=== PATIENT | male | born 1970 | race Caucasian/White ===

== ENCOUNTER 2017-01-10 02:34 | Observation (INO) | payer BC ==
[2017-01-10] MEDS ORDERED: ASPIRIN 81 MG CHEW PO STA (03:20)
[2017-01-10] MEDS ORDERED: NITROGLYCERIN OINT 1 INCH/GM PACKET TOPICAL STA (03:20)
[2017-01-10] MEDS ORDERED: MORPHINE SULFATE 4 MG/ML SYRINGE IV STA (03:20)
[2017-01-10] MEDS ORDERED: SODIUM CHLORIDE 0.9% 1,000 ML IV STA (03:20)
[2017-01-10] MEDS ORDERED: ONDANSETRON 4 MG/2 ML VIAL IVP STA (03:20)
[2017-01-10 03:53] LABS: ALT 74 U/L (21-72); AST 43 U/L (17-59); Alkaline Phosphatase 53 U/L (38-126); Anion Gap 13 mmol/L; Blood Urea Nitrogen 22 mg/dL (9-20); Calcium 9.6 mg/dL (8.4-10.2); Carbon Dioxide 23 mmol/L (22-30); Chloride 101 mmol/L (98-107); Glucose 114 mg/dL (74-99); Magnesium 1.9 mg/dL (1.6-2.3); Non-African American GFR(MDRD) >60 (>60 ml/min/1.73 sqM); Potassium 4.1 mmol/L (3.5-5.1); Sodium 137 mmol/L (137-145); Total Bilirubin 1.1 mg/dL (0.2-1.3); Total Protein 7.3 g/dL (6.3-8.2)
[2017-01-10 03:54] LABS: Basophils # (A) 0.1 k/uL (0-0.2); Basophils % (A) 1 %; CH 31.6; CHCM 36.6; Eosinophils # (A) 0.2 k/uL (0-0.7); Eosinophils % (A) 3 %; HCT 49.5 % (39.0-53.0); HDW 2.94; HGB 17.4 gm/dL (13.0-17.5); Luc # (Auto) 0.21; Luc % (Auto) 3; Lymphocytes # (A) 1.8 k/uL (1.0-4.8); Lymphocytes % (A) 21 %; MCH 30.3 pg (25.0-35.0); MCHC 35.1 g/dL (31.0-37.0); MCV 86.5 fL (80.0-100.0); Mean Platelet Volume 7.8; Monocytes # (A) 0.5 k/uL (0-1.0); Monocytes % (A) 6 %; Neutrophils # (A) 5.7 k/uL (1.3-7.7); Neutrophils % (A) 67 %; RBC 5.73 m/uL (4.30-5.90); RDW 12.9 % (11.5-15.5); WBC 8.4 k/uL (3.8-10.6); WBC (Perox) 8.48
--- NOTE | 2017-01-10 04:03 | XR ---
EXAM: XR Chest, 2 Views. CLINICAL HISTORY: Reason: Chest Pain TECHNIQUE: Frontal and lateral views of the chest. COMPARISON: CXR 04/05/15 FINDINGS: Lungs: Unremarkable. No consolidation. Pleural space: Unremarkable. No pneumothorax. Heart: Unremarkable. No cardiomegaly. Mediastinum: Unremarkable. Bones/joints: Multilevel degenerative changes of the thoracic spine. IMPRESSION: No acute findings.
[2017-01-10 04:06] LABS: Creatine Kinase 139 U/L (55-170)
[2017-01-10 04:07] LABS: INR 1.1 (<1.1); Partial Thromboplastin Time 28.8 sec (22.0-30.0); Prothrombin Time 10.9 sec (9.0-12.0)
[2017-01-10 04:19] LABS: Creatine Kinase MB 1.2 ng/mL (0.0-2.4); Troponin I <0.012 ng/mL (0.000-0.034)
[2017-01-10] MEDS ORDERED: HEPARIN SODIUM,PORCINE 5,000 UNIT/ML 1 ML VIAL IV ONE (06:03)
[2017-01-10] MEDS ORDERED: NITROGLYCERIN SL TABS 0.4 MG TAB SUBLINGUAL PRN (06:03)
[2017-01-10] MEDS ORDERED: MORPHINE SULFATE 4 MG/ML SYRINGE IV PRN (06:03)
--- NOTE | 2017-01-10 06:03 | ED ---
Chest Pain HPI - General Chief Complaint: Chest Pain Stated Complaint: Chest tightness Time Seen by Provider: 01/10/17 02:55 Source: patient Mode of arrival: wheelchair Limitations: no limitations - History of Present Illness Initial Comments: Planing about chest pain it started around 10:30 and they noticed his blood pressure was quite high on arrival his blood pressure was 200 systolic is not feeling well he does have a history of hypertension I examine her average blood pressure is 140/85 he has seen lime trimmer and had a stress test done about one year ago today he denies any nausea no vomiting no cold sweats and he is short of breath no pleuritic chest pain he denies any tobacco or alcohol use his family history is unremarkable for coronary artery disease - Related Data Home Medications Medication Instructions Recorded Confirmed Omeprazole [PriLOSEC] 20 mg PO AC-BID 04/05/15 01/10/17 Hydrochlorothiazide 25 mg PO DAILY 01/10/17 01/10/17 Losartan Potassium [Cozaar] 50 mg PO DAILY 01/10/17 01/10/17 Allergies Allergy/AdvReac Type Severity Reaction Status Date / Time No Known Allergies Allergy Verified 01/10/17 02:42 Review of Systems ROS Statement: Those systems with pertinent positive or pertinent negative responses have been documented in the HPI. ROS Other: All systems not noted in ROS Statement are negative. EKG Findings - EKG Comments: EKG Findings:: EKG is normal sinus rhythm ventricular rate is 92 TN interval is 152 QRS duration is 82 QT/QTc is 314/390 review of this EKG showed flattening of the T-wave in lead [address] elevation or ST depression noticed in the other leads Past Medical History Past Medical History: GERD/Reflux, Hypertension History of Any Multi-Drug Resistant Organisms: None Reported Past Surgical History: Orthopedic Surgery Past Psychological History: No Psychological Hx Reported Smoking Status: Never smoker Past Alcohol Use History: Occasional Past Drug Use History: None Reported General Exam - General Exam Comments Initial Comments: General: The patient is awake and alert, really distressed Skin: Skin is warm and dry and no rashes or lesions are noted. Eye: Pupils are equal, round and reactive to light, extra-ocular movements are intact; there is normal conjunctiva bilaterally. Ears, nose, mouth and throat: There are moist mucous membranes and no oral lesions. Neck: The neck is supple, there is no tenderness or JVD. Cardiovascular: There is a regular rate and rhythm. No murmur, rub or gallop is appreciated. Respiratory: To auscultation bilateral, no wheezing no rhonchi no distress respiratory farris noticed Gastrointestinal: Soft, non-distended, non-tender abdomen without masses or organomegaly noted. There is no rebound or guarding present. Bowel sounds are unremarkable. Back: There is no tenderness to palpation in the midline. There is no obvious deformity. Musculoskeletal: Normal ROM, no tenderness, There is no pedal edema. There is no calf tenderness or swelling. No cords were appreciated. Neurological: CN II-XII intact, Cranial nerves III through XII are intact. There are no obvious motor or sensory deficits. Coordination appears grossly intact. Speech is normal. Psychiatric: Cooperative, appropriate mood & affect, normal judgment. Limitations: no limitations Course Vital Signs 01/10/17 01/10/17 01/10/17 02:38 02:56 03:26 Temperature 99.4 F Pulse Rate 100 86 85 Respiratory 18 18 18 Rate Blood Pressure 200/96 167/96 147/93 O2 Sat by Pulse 97 96 97 Oximetry Critical Care Time Total Critical Care Time: 37 Critical Care Time: General is quite distressed when he came in at that point a lot of her chest pressure patient be given some nitro with the morphine and Zofran of that he helped him with his pain and denies blood pressure eventually improved blood pressure the time it's with the assessment was 145 systolic his chest pain has gone down now is not totally does wall considering his elevated blood pressure and chest pressure though first troponin is -100-10 E. 3 sets of troponin he'll be heparinized and will consult cardiology he be admitted under Dr. Paredes service Disposition Clinical Impression: Hypertension, Chest pain Disposition: ADMITTED IP TO THIS HOSP Condition: Good Instructions: Chest Pain (ED)
[2017-01-10] MEDS ORDERED: HEPARIN SODIUM,PORCINE/D5W PMX 25,000 UNIT in DEXTROSE/WATER 1 500ML.BAG IV SCH (06:15)
[2017-01-10 09:50] LABS: Creatine Kinase 117 U/L (55-170)
[2017-01-10 10:01] LABS: Creatine Kinase MB 1.1 ng/mL (0.0-2.4); Troponin I <0.012 ng/mL (0.000-0.034)
--- NOTE | 2017-01-10 10:07 | CONS ---
DATE OF CONSULTATION: Mr. Jay is a 46-year-old male with known history of hypertension, no prior documented history of coronary artery disease, who presented with symptoms of tightness in the chest. The discomfort started around 10:30 last night while at rest, persisted until now, which is about 12 hours. He checked his blood pressure and it was elevated, was concerned about it, came into the emergency room and subsequently admitted. He is usually active physically. He has no exertional chest pain. His breathing has been stable. He has no dizziness, palpitation or syncope. He had a prior peripheral edema ( ) antihypertensive regimen but that has resolved. No PND. No orthopnea. He has been followed by Dr. Baldwin as an outpatient and had similar symptoms about a year ago and at that time underwent a stress test and an echo and according to him they were unremarkable. His coronary risk factors are positive for hypertension. He is nondiabetic, nonsmoker. His lipid profile is not available to me. His medications include losartan 50 mg daily, hydrochlorothiazide 25 mg daily, omeprazole 20 mg daily. REVIEW OF SYSTEMS: RESPIRATORY SYSTEM: He has no recent wheezing. No cough. No history of documented obstructive lung disease. GI SYSTEM: No recent GI bleeding. No peptic ulcer disease. SYSTEM: No dysuria or hematuria. NERVOUS SYSTEM: No stroke or seizure. PHYSICAL EXAMINATION: A 46-year-old male, alert, oriented, in no apparent distress. Blood pressure 142/80 with the heart rate in the 90s. HEAD: Normocephalic. EYES: Sclerae anicteric. NECK: Good upstroke. No bruit. No jugular venous distention. LUNGS: Clear to auscultation. HEART: Regular rate and rhythm. S1, S2, no S3, no S4, no murmur or rub. ABDOMEN: Soft, nontender, positive bowel sounds. No organomegaly. EXTREMITIES: No edema. Intact distal pulses. Lab data revealed troponin less than 0.012. ALT of 74. BUN and creatinine 22 and 1.0, Potassium 4.1. Hemoglobin of 17.4. White blood cell of 8.4. EKG revealed sinus mechanism, normal axis and intervals, normal electrocardiogram. Chest x-ray shows no acute changes. IMPRESSION: 1. Symptoms of chest discomfort, have atypical feature for ischemic heart disease in a patient with no prior documented history of coronary artery disease. The pattern of the symptoms as well as duration negative with the negative enzymes makes it less likely to be cardiac. 2. Hypertension. RECOMMENDATION: I will obtain the prior workup that was done by Dr. Baldwin, will obtain serial enzymes. I will obtain echocardiogram. Depending on the results of his testing and his symptoms, further recommendation will be made. Thank you for this consult. We will follow with you.
[2017-01-10] MEDS: LOSARTAN 50 MG TAB PO SCH (10:23)
[2017-01-10] MEDS: HYDROCHLOROTHIAZIDE 25 MG TAB PO SCH (10:24)
[2017-01-10] MEDS: PANTOPRAZOLE 40 MG TABLET PO SCH ×2 (10:24→18:58)
[2017-01-10] MEDS: ACETAMINOPHEN TAB 325 MG TAB PO PRN (11:23)
--- NOTE | 2017-01-10 12:09 | ECHOF ---
Referral Reason:htn MEASUREMENTS -------- HEIGHT: 177.8 cm WEIGHT: 106.6 kg BP: 162/92 RVIDd: 2.7 cm (< 3.3) IVSd: 1.2 cm (0.6 - 1.1) LVIDd: 5.0 cm (3.9 - 5.3) LVPWd: 1.3 cm (0.6 - 1.1) IVSs: 1.8 cm LVIDs: 3.2 cm LVPWs: 1.5 cm LA Diam: 3.7 cm (2.7 - 3.8) LAESV Index (A-L): 22.60 ml/m Ao Diam: 2.7 cm (2.0 - 3.7) AV Cusp: 2.1 cm (1.5 - 2.6) LA Diam: 3.3 cm (2.7 - 3.8) MV EXCURSION: 14.230 mm (> 18.000) MV EF SLOPE: 57 mm/s (70 - 150) EPSS: 0.4 cm MV E Reid: 0.87 m/s MV DecT: 183 ms MV A Reid: 0.82 m/s MV E/A Ratio: 1.06 AR PHT: 1258 ms RAP: 5.00 mmHg FINDINGS -------- Sinus rhythm. This was a technically good study. There is mild concentric left ventricular hypertrophy. Overall left ventricular systolic function is normal with, an EF between 55 - 60 %. The right ventricle is normal in size. Normal LA size by volume 22+/-6 ml/m2. The right atrium is normal in size. Aortic valve is trileaflet and is mildly thickened. Trace amount of aortic regurgitation. Mild mitral annular calcification present. There is trace mitral regurgitation. Trace tricuspid regurgitation present. Right ventricular systolic pressure is normal at < 35 mmHg. Pulmonic valve appears structurally normal. The aortic root size is normal. Normal inferior vena cava with normal inspiratory collapse consistent with estimated right atrial pressure of 5 mmHg. There is no pericardial effusion. CONCLUSIONS -------- 1. Sinus rhythm. 2. Mild mitral annular calcification present. 3. There is trace mitral regurgitation. 4. Trace tricuspid regurgitation present. 5. Right ventricular systolic pressure is normal at < 35 mmHg. 6. Pulmonic valve appears structurally normal. 7. The aortic root size is normal. 8. There is no pericardial effusion. 9. This was a technically good study. 10. There is mild concentric left ventricular hypertrophy. 11. Overall left ventricular systolic function is normal with, an EF between 55 - 60 %. 12. The right ventricle is normal in size. 13. Normal LA size by volume 22+/-6 ml/m2. 14. The right atrium is normal in size. 15. Aortic valve is trileaflet and is mildly thickened. 16. Trace amount of aortic regurgitation. WAX POURER: Rimma Alvarenga RDCS
[2017-01-10 15:55] LABS: Creatine Kinase 100 U/L (55-170)
[2017-01-10 16:08] LABS: Creatine Kinase MB 0.8 ng/mL (0.0-2.4); Troponin I <0.012 ng/mL (0.000-0.034)
--- NOTE | 2017-01-10 17:46 | HP ---
DATE OF ADMISSION: 01/10/2017 PRESENTING COMPLAINT: Chest pressure. HISTORY OF PRESENTING COMPLAINT: This is a pleasant 46-year-old patient of Dr. Lebron with known history of GERD, hypertension which is stable, history of stress test about a year ago that was negative. Patient said that yesterday he developed chest tightness, present on and off for quite a few hours. Patient did take his blood pressure at that time and it was 188/108. There was no dizziness, no radiation, no perspiration. Patient may be a bit anxious, he stated. Patient has a desk job at work; came in to rule out a cardiac cause. REVIEW OF SYSTEMS: CONSTITUTIONAL: Tired. HEENT: None. RESPIRATORY: None. CARDIOVASCULAR: As above. GASTROINTESTINAL: Heartburn. GENITOURINARY: None. MUSCULOSKELETAL: None. DERMATOLOGIC: None. HEMATOLOGIC: None. LYMPHATICS: None. PSYCHIATRY: Somewhat anxious. NEUROLOGICAL: None. PAST MEDICAL HISTORY: GERD, hypertension. PAST SURGICAL HISTORY: Right knee hematoma surgically removed, from football injury. SOCIAL HISTORY: . 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 Alcohol occasionally. He does not smoke. FAMILY HISTORY: Hypertension, diabetes. HOME MEDICATIONS: 1. Prilosec 20 mg a day. 2. Cozaar 50 mg a day. 3. Hydrochlorothiazide 25 mg a day. ALLERGIES: NONE. On examination, temperature 97.5, pulse 90, respiration 18, blood pressure 162/92, pulse ox 93% on room air. GENERAL APPEARANCE: Well built; BMI of 33.8. Lying in bed. Anxious-appearing. EYES: Pupils equal. Conjunctivae normal. HEENT: Oral cavity normal. NECK: JVD not raised. Mass not palpable. RESPIRATORY: Effort normal. Lungs are clear. CARDIOVASCULAR: First and second sounds normal. No edema. ABDOMEN: Soft, non-tender. Liver and spleen not palpable. LYMPHATIC: No lymph node palpable in neck or axillae. PSYCHIATRY: Alert and oriented x3. Mood and affect normal. INVESTIGATIONS: White count 8.4, hemoglobin 17.4. Potassium 4.1. BUN 22, creatinine 1.0. Troponin less than 0.012. EKG shows normal sinus rhythm. Two-D echocardiogram shows some mild concentric left ventricular hypertrophy. ASSESSMENT: 1. Anterior chest wall pressure in a patient with known hypertension, gastroesophageal reflux disease, blood pressure running on the high side, somewhat high-strung, with a negative stress test one year ago. 2. Essential hypertension, uncontrolled. 3. Gastroesophageal reflux disease. 4. Obesity; body mass index of 33.8. PLAN: Cardiology was consulted. They will look into patient's old stress test. Patient's blood pressure medications will be adjusted. Will switch to lisinopril/hydrochlorothiazide in the meantime. Will await cardiology input and go from there. Patient also advised to lose weight.
[2017-01-10 19:38] VITALS: RESP 16
--- NOTE | 2017-01-11 07:50 | PN ---
Mr. Jay is a 46-year-old male with known history of hypertension who presented with symptoms of chest discomfort. He is doing well this morning, ambulating without difficulty. Denying any dizziness. No palpitation. No nausea. He continues to be on aspirin once a day, losartan 50 mg daily and hydrochlorothiazide 25 mg daily. PHYSICAL EXAMINATION: Blood pressure 140/70 with the heart rate in the 70s. LUNGS: Clear. HEART: Regular rate and rhythm. S1 and S2, no S3, no rub. ABDOMEN: Soft, nontender. EXTREMITIES: No edema. Lab data revealed troponin less than 0.012 for 3 samples. IMPRESSION: 1. Chest discomfort of unclear etiology has some atypical feature for ischemic heart disease. 2. Hypertension. RECOMMENDATION: I reviewed the results of his echocardiogram. In the past, he had a regular stress test that was unremarkable. In view of that, he will proceed with a stress echocardiogram today. If there is no evidence of inducible ischemia, then he should be able to be discharged home and follow as an outpatient with Dr. Baldwin.
[2017-01-11 08:59] LABS: Cholesterol 143 mg/dL (<200); HDL Cholesterol 37 mg/dL (40-60); Triglycerides 130 mg/dL (<150)
[2017-01-11] MEDS ORDERED: ASPIRIN 325 MG TAB PO SCH (09:00)
[2017-01-11] MEDS: HYDROCHLOROTHIAZIDE 25 MG TAB PO SCH (11:30)
[2017-01-11] MEDS: LOSARTAN 50 MG TAB PO SCH (11:30)
[2017-01-11] MEDS: PANTOPRAZOLE 40 MG TABLET PO SCH (11:30)
[2017-01-11] MEDS: ACETAMINOPHEN TAB 325 MG TAB PO PRN (11:35)
--- NOTE | 2017-01-11 14:40 | ECHOS ---
DATE OF SERVICE: 01/11/2017 AGE: 46Y SEX: M HT: 70" WT: 235 lbs. Protocol Paulo: X Others: Stress Echo Stage: 3 Dur. of Exercise: 9:00 *Heart Rate Blood Pressure *Rest: 83 Rest: 144/92 * *Max. Achieved: 156 Maximum BP: 190/81 85% PMHR: 147 100% PMHR: 173 *METS: 9.1 INDICATIONS: Chest pain. MEDICATIONS: Omeprazole, Cozaar, hydrochlorothiazide. Patient was exercised for a total period of 9 minutes. A peak heart rate of 156 was achieved. Maximum blood pressure of 190/81 mmHg was noted. Resting EKG shows normal sinus rhythm with normal DE interval and QRS duration and normal ST-T waves. No ST segment depression suggestive of ischemia is noted. The baseline echocardiographic images reveal a normal left ventricular chamber size with normal left ventricular systolic function. In the immediate postexercise period, normal increase in the wall thickness and contractility is noted. IMPRESSION: This stress echocardiographic study is negative for stress-induced ischemia. EKG portion of the stress test is not suggestive of ischemia. Patient's exercise tolerance is normal.
[2017-01-11 15:49] VITALS: BP 140/79; PULSE 82; TEMP 98.7
--- NOTE | 2017-01-12 09:09 | DS ---
DATE OF ADMISSION: 01/10/2017 DATE OF DISCHARGE: 01/11/2017 FINAL DIAGNOSES: 1. Anterior chest wall pain, probably psychosomatic. 2. Anxiety disorder, not otherwise specified. 3. Essential hypertension, uncontrolled. 4. Gastroesophageal reflux disease. 5. Obesity, body mass index 33.8. HOSPITAL COURSE: This patient is somewhat high strung presented with atypical presentation, did undergo a stress echocardiogram that was negative. Did talk to patient about how to do mindfulness, etc. to try to keep himself calm. ( ) changed. On exam, lungs are clear. CARDIOVASCULAR: First and second sounds normal. Patient's LDL was 80. DISCHARGE MEDICATIONS: 1. Omeprazole 20 mg daily. 2. Cozaar 50 mg daily. 3. Chlorthalidone 25 mg p.o. daily. Patient also advised ( ) weight loss measures. Follow up with Dr. Lebron in one week. Follow up with Dr. Teodora Baldwin in one week.
== END 2017-01-11 15:45 | disposition home or self-care (01) ==
LOC: EC 02:34 → 3OBS 06:03
PROVIDERS: ADMIT Hospitalist; ATTEND Hospitalist
DX: R07.89 Other chest pain (principal); F41.9 Anxiety disorder, unspecified; I10 Essential (primary) hypertension; K21.9 Gastro-esophageal reflux disease without esophagitis; E66.9 Obesity, unspecified; Z68.33 Body mass index [BMI] 33.0-33.9, adult; Z82.49 Family history of ischemic heart disease and other diseases of the circulatory system; Z79.899 Other long term (current) drug therapy
CPT/HCPCS: 36415; 93005; 93017; 93306; 93350; 85379; 80061; 80053; 82550; 82553; 83735; 84484; 85025; 85610; 85730; 71020; 99285; 96375 ×2; 96376; 96361; G0378 ×2; J2270; J1644 ×2; J2405; 96366

== ENCOUNTER 2019-02-11 08:09 | Day surgery (SDC) | payer BC ==
[2019-02-06 11:19] VITALS: BMI 33.7
[~2019-02-11 08:09] MED LIST: DEXAMETHASONE SOD PHOSPHATE 10 MG/ML 1 ML VIAL IV ONE; HEPARIN SODIUM,PORCINE 5,000 UNIT/ML 1 ML VIAL SQ ONE; HYDROmorphone 0.5 MG/0.5 ML SYRINGE IVP PRN; LACTATED RINGERS 1,000 ML IV SCH; MIDAZOLAM (PF) 2 MG/2 ML VIAL IV PRN; ONDANSETRON 4 MG/2 ML VIAL IVP ONE; SCOPOLAMINE 1.5MG/72HR PATCH TRANSDERM ONE; ceFAZolin IN SWFI 2 GM/20 ML SYRINGE IVP ONE
[2019-02-11] MEDS ORDERED: LIDOCAINE 1% 20 ML VIAL (10MG/ML) FOR IV START SQ ONE (08:33)
--- NOTE | 2019-02-11 08:53 | P.GSHP ---
History of Present Illness H&P Date: 02/11/19 Chief Complaint: Right upper quadrant pain, cholelithiasis This a 48-year-old male who presents today for laparoscopic cholecystectomy. Patient's had complaints of right quadrant pain. He is worked up found have evidence of cholelithiasis. Past Medical History Past Medical History: GERD/Reflux, Hypertension Additional Past Medical History / Comment(s): elevated liver enzymes slightly, gallstones History of Any Multi-Drug Resistant Organisms: None Reported Past Surgical History: Orthopedic Surgery Additional Past Surgical History / Comment(s): R knee hematoma surgically removed from football injury, EGD/colonoscopy. Past Anesthesia/Blood Transfusion Reactions: No Reported Reaction Additional Past Anesthesia/Blood Transfusion Reaction / Comment(s): no hx blood transfusions Smoking Status: Never smoker - Past Family History Mother Family Medical History: Hypertension Additional Family Medical History / Comment(s): Mother has borderline diabetes. Father Family Medical History: GERD/Reflux Medications and Allergies Home Medications Medication Instructions Recorded Confirmed Type Omeprazole [PriLOSEC] 20 mg PO QAM 04/05/15 02/11/19 History Losartan Potassium [Cozaar] 50 mg PO QAM 01/10/17 02/11/19 History Ibuprofen 600 mg PO DAILY 02/06/19 02/06/19 History Allergies Allergy/AdvReac Type Severity Reaction Status Date / Time No Known Allergies Allergy Verified 02/11/19 08:19 Surgical - Exam Vital Signs Temp Pulse Resp BP Pulse Ox 97.8 F 80 16 155/89 96 02/11/19 08:27 02/11/19 08:27 02/11/19 08:27 02/11/19 08:27 02/11/19 08:27 - General well developed, well nourished, no distress - Eyes PERRL - ENT normal pinna - Neck no masses - Respiratory normal expansion - Cardiovascular Rhythm: regular - Abdomen Abdomen: soft, non tender Assessment and Plan Assessment: Right upper quadrant pain Cholelithiasis We'll perform laparoscopic cholecystectomy.
[2019-02-11] MEDS ORDERED: GLYCOPYRROLATE 0.2 MG/ML 2 ML VIAL ONE (09:16)
[2019-02-11] MEDS ORDERED: SUCCINYLCHOLINE CHLORIDE 100 MG/5 ML SYR IV ONE (09:16)
[2019-02-11] MEDS ORDERED: LIDOCAINE 1% INJ 10MG/ML (20 ML MDV) ONE (09:16)
[2019-02-11] MEDS ORDERED: MIDAZOLAM 2 MG/2 ML VIAL ONE (09:16)
[2019-02-11] MEDS ORDERED: HYDROmorphone (PF) 1 MG/ML ONE (09:16)
[2019-02-11] MEDS ORDERED: fentaNYL (PF) 50 MCG/ML 2 ML AMP ONE (09:16)
[2019-02-11] MEDS ORDERED: NEOSTIGMINE 1 MG/ML 10 ML VIAL ONE (09:16)
[2019-02-11] MEDS ORDERED: ePHEDrine SULFATE/0.9% NACL/PF 50 MG/5 ML SYRINGE IV ONE (09:16)
[2019-02-11] MEDS ORDERED: ROCURONIUM BROMIDE 10 MG/ML 10 ML VIAL IV ONE (09:16)
[2019-02-11] MEDS ORDERED: PROPOFOL 10 MG/ML 20 ML VIAL IV ONE (09:16)
[2019-02-11] MEDS ORDERED: BUPIVACAIN-EPI 0.5%-1:200,000 30 ML VIAL SQ ONE (09:35)
--- NOTE | 2019-02-11 10:01 | P.OP ---
Date of Procedure: 02/11/19 Preoperative Diagnosis: Cholecystitis Cholelithiasis Postoperative Diagnosis: Cholecystitis Cholelithiasis Procedure(s) Performed: Laparoscopic cholecystectomy Anesthesia: SEAN Surgeon: Rasta Roberts Estimated Blood Loss (ml): 5 Pathology: other (Gallbladder) Condition: stable Disposition: PACU Description of Procedure: The patient was placed on the operating table. The patient received a general endotracheal tube anesthesia. The patients abdomen was prepped and draped in the usual sterile fashion. Through an infraumbilical stab incision, the fascia of the anterior abdominal wall was grasped with a pair of Kochers and then the Veress needle was placed in the peritoneal cavity. Position of the Veress needle was confirmed with positive drop test. The abdomen was then insufflated. After adequate insufflation, the 10 mm trocar was placed in the peritoneal cavity. Following this the laparoscope was placed in the peritoneal cavity. The patient was placed in the head-up, right side up position and then a 5 mm trocar was placed in the right lateral and right subcostal position under direct visualization. A 8 mm trocar was placed in the epigastric position. The gallbladder was grasped in the fundus and infundibulum. Traction on the gallbladder was placed in the lateral and the cephalad positions. The triangle of Calot was visualized.. The cystic duct was bluntly dissected until the union of the cystic duct and common bile duct wa s seen. The cystic duct was then divided and sealed with the Harmonic scissors. A PDS Endoloop was then placed throughout the cystic duct stump. The cystic artery divided and sealed with the Harmonic scissors. The gallbladder was then removed from the liver bed using Harmonic scissors. The gallbladder was then extracted through the epigastric port site. Operative field was checked for any bleeding spots and Harmonic scissors was used to coagulate the liver bed. The abdomen was irrigated. The trocars were removed. The skin was closed using interrupted 3-0 Vicryl suture. Dermabond dressing were applied. The patient tolerated the procedure well.
[2019-02-11] MEDS ORDERED: MEPERIDINE 50 MG/ML SYRINGE IVP ONE (10:08)
[2019-02-11 10:12] VITALS: TEMP 98
[2019-02-11 11:35] VITALS: RESP 18
[2019-02-11 12:13] VITALS: BP 157/96; PULSE 94
== END 2019-02-11 12:47 | disposition home or self-care (01) ==
LOC: OR 08:09
PROVIDERS: ATTEND Surgery
DX: K80.10 Calculus of gallbladder with chronic cholecystitis without obstruction (principal); I10 Essential (primary) hypertension; K21.9 Gastro-esophageal reflux disease without esophagitis; E66.9 Obesity, unspecified; Z82.49 Family history of ischemic heart disease and other diseases of the circulatory system; Z79.899 Other long term (current) drug therapy; Z79.1 Long term (current) use of non-steroidal anti-inflammatories (NSAID); Z68.33 Body mass index [BMI] 33.0-33.9, adult
CPT/HCPCS: 88304; 47562; J2250; J1644; J1100; J2710; J2175; J2405; J2001; J3010; J1170 ×2; J0330; J2704; J0690

== ENCOUNTER 2019-02-24 08:55 | Observation (INO) | payer BC ==
[2019-02-24] MEDS ORDERED: KETOROLAC 30 MG/ML 1 ML VIAL IM STA (09:31)
[2019-02-24] MEDS ORDERED: HYDROcodone/APAP 5-325MG 1 EACH TAB PO STA (09:32)
[2019-02-24] MEDS ORDERED: DEXAMETHASONE 4 MG TAB PO STA (09:32)
--- NOTE | 2019-02-24 09:35 | ED ---
General Adult HPI - General Chief complaint: Back Pain/Injury Stated complaint: BACK PAIN, HYPERTENSION Time Seen by Provider: 02/24/19 09:04 Source: patient Mode of arrival: wheelchair - History of Present Illness Initial comments: Dictation was produced using [employer] dictation software. please excuse any grammatical, word or spelling errors. Chief Complaint: 48-year-old male with past medical history of hypertension and reflux disease presents with back pain. History of Present Illness: 8-year-old male has been struggling with back pain for the past several months. He would have intermittent episodes of sharp back tenderness to his left lower back. Patient states that 4 days ago he was standing by the sink when he felt severe sharp lower back pain. Patient states his pain progressed. Patient states his it was so severe today prompting him to come to the emergency department. Patient states he is having difficulty walking secondary to pain. Pain is exacerbated with various movements and standing. Denies any fever, chills or night sweats. He has been having intermittent left foot numbness. Denies any bowel or bladder incontinence. No urinary production. No saddle anesthesia. The ROS documented in this emergency department record has been reviewed and confirmed by me. Those systems with pertinent positive or negative responses have been documented in the HPI. All other systems are other negative and/or noncontributory. PHYSICAL EXAM: General Impression: Alert and oriented x3, not in acute distress HEENT: Normocephalic atraumatic, extra-ocular movements intact, pupils equal and reactive to light bilaterally, mucous membranes moist. Cardiovascular: Heart regular rate and rhythm, S1&S2 audible, no murmurs, rubs or gallops Chest: Lungs clear to auscultation bilaterally, no rhonchi, no wheeze, no rales Abdomen: Bowel sounds present, abdomen soft, non-tender, non-distended, no organomegaly Musculoskeletal: Pulses present and equal in all extremities, no peripheral edema, tenderness to palpation over the left piriformis muscle, positive straight leg test Motor: no focal deficits noted Neurological: CN II-XII grossly intact, no focal motor or sensory deficits noted Skin: Intact with no visualized rashes Psych: Normal affect and mood ED course: 48-year-old male with acute on chronic back pain. Patient does have some complaints of intermittent left foot paresthesias. However she denies any neuro symptoms at this time. As upon arrival are within acceptable limits. Pain is partly reproducible with palpation to the left lower back area. Positive straight leg test. Given history of neuro deficits, CT of the lumbar spine was obtained.Patient given Decadron, Toradol and Mccle[place]and. Patient evaluated with mild improvement of symptoms. Lumbar spine CT was performed showing diffuse degenerative disc disease and facet arthropathy. Patient also has bilateral intervertebral foraminal narrowing at L5-S1 worse in the left than the right. Given these findings on the left L5-S1 space believe this is causing symptoms. Clinical presentation consistent with sciatica. Patient counseled on nonoperative and conservative back treatment including early ambulation, taking Motrin and Tylenol. Patient also given rescue analgesics with prescription for Mcclelland. Patient also given Medrol Dosepak. Referral provided for outpatient environmental programs specialist for outpatient management of back symptoms. Patient is understandable and agreeable to disposition. - Related Data Home Medications Medication Instructions Recorded Confirmed Omeprazole [PriLOSEC] 20 mg PO QAM 04/05/15 02/24/19 Losartan Potassium [Cozaar] 50 - 100 mg PO QAM 01/10/17 02/24/19 Ibuprofen 600 mg PO DAILY 02/06/19 02/24/19 Previous Rx's Medication Instructions Recorded HYDROcodone/APAP 5-325MG [M[place] 1 tab PO Q6HR PRN 3 Days #12 tab 02/24/19 5-325] methylPREDNISolone [Medrol Dose 4 mg PO DIRECTED #1 pack 02/24/19 Pack] Allergies Allergy/AdvReac Type Severity Reaction Status Date / Time No Known Allergies Allergy Verified 02/24/19 09:40 Review of Systems ROS Statement: Those systems with pertinent positive or pertinent negative responses have been documented in the HPI. ROS Other: All systems not noted in ROS Statement are negative. Past Medical History Past Medical History: GERD/Reflux, Hypertension Additional Past Medical History / Comment(s): elevated liver enzymes slightly, gallstones History of Any Multi-Drug Resistant Organisms: None Reported Past Surgical History: Orthopedic Surgery Additional Past Surgical History / Comment(s): R knee hematoma surgically removed from football injury, EGD/colonoscopy. Past Anesthesia/Blood Transfusion Reactions: No Reported Reaction Additional Past Anesthesia/Blood Transfusion Reaction / Comment(s): no hx blood transfusions Past Psychological History: No Psychological Hx Reported Smoking Status: Never smoker Past Alcohol Use History: None Reported Past Drug Use History: None Reported - Past Family History Mother Family Medical History: Hypertension Additional Family Medical History / Comment(s): Mother has borderline diabetes. Father Family Medical History: GERD/Reflux Course Vital Signs 02/24/19 08:58 Temperature 98.2 F Pulse Rate 81 Respiratory 18 Rate Blood Pressure 167/109 O2 Sat by Pulse 96 Oximetry Disposition Clinical Impression: Sciatica Disposition: HOME SELF-CARE Condition: Good Instructions (If sedation given, give patient instructions): Acute Low Back Pain (ED), Chronic Back Pain (ED) Prescriptions: methylPREDNISolone [Medrol Dose Pack] 4 mg PO DIRECTED #1 pack HYDROcodone/APAP 5-325MG [Mccle[place]and 5-325] 1 tab PO Q6HR PRN 3 Days #12 tab PRN Reason: Severe Pain Is patient prescribed a controlled substance at d/c from ED?: Yes If prescribed controlled substance>3 days was MAPS reviewed?: Prescribed <3 Days Referrals: Troy Hayes DO [Doctor of Osteopathic Medicine] - 1-2 days Time of Disposition: 10:48
--- NOTE | 2019-02-24 10:33 | CT ---
EXAMINATION TYPE: CT lumbar spine wo con DATE OF EXAM: 02/24/2019 10:23 AM COMPARISON: None. HISTORY: Low back and left leg pain. No known injury CT DLP: 1241 mGycm Automated exposure control for dose reduction was used. Unenhanced CT of the lumbar spine was performed. Bone and soft tissue window settings are submitted as well as coronal and sagittal reconstructions. FINDINGS: Paraspinal soft tissues are normal. Vertebral body height and alignment are maintained. There is a minimal levoscoliosis. L1-L2: There is mild disc space loss and hypertrophic spondylosis. Intervertebral foramina are well m aintained. There is no significant compressive discopathy. There is mild hypertrophic changes in the facets. L2-L3: There is mild disc space loss and hypertrophic spondylosis. The intervertebral foramina are wi loi maintained. There is no significant compressive discopathy. There are mild hypertrophic changes in the facets. L3-L4: There is a diffuse disc displacement. There are hypertrophic changes in the facets. There is m ild disc space loss and hypertrophic spondylosis. Intervertebral foramina are widely maintained. Ther e is a diffuse disc displacement. This hypertrophic changes in the facets. There is minimal trefoilin g of the thecal sac. L4-L5: There is mild disc space loss. Intervertebral foramina are well maintained. There is a diffuse disc displacement. There is hypertrophic changes in the facets. There is mild trefoiling of the thec al sac. L5-S1: There is disc space loss and hypertrophic spondylosis present anteriorly. There is bilateral i ntervertebral foraminal narrowing worse on the left than the right. There is a diffuse disc displacem ent. There are mild hypertrophic changes in the facets. IMPRESSION: 1. DIFFUSE DEGENERATIVE DISC DISEASE AND FACET ARTHROPATHY. 2. BILATERAL INTERVERTEBRAL FORAMINAL NARROWING, L5-S1, WORSE ON THE LEFT THAN THE RIGHT.
--- NOTE | 2019-02-24 11:04 | ED ---
Disposition Clinical Impression: Sciatica Disposition: HOME SELF-CARE Condition: Good Instructions (If sedation given, give patient instructions): Acute Low Back Pain (ED), Chronic Back Pain (ED) Prescriptions: Cyclobenzaprine [Flexeril] 10 mg PO TID PRN #20 tab PRN Reason: back pain methylPREDNISolone [Medrol Dose Pack] 4 mg PO DIRECTED #1 pack HYDROcodone/APAP 5-325MG [[place] 5-325] 1 tab PO Q6HR PRN 3 Days #12 tab PRN Reason: Severe Pain Is patient prescribed a controlled substance at d/c from ED?: Yes If prescribed controlled substance>3 days was MAPS reviewed?: Prescribed <3 Days Referrals: Troy Hayes DO [Doctor of Osteopathic Medicine] - 1-2 days
[2019-02-24] MEDS ORDERED: IBUPROFEN 400 MG TAB PO PRN (11:20)
[2019-02-24] MEDS ORDERED: ONDANSETRON 4 MG/2 ML VIAL IVP PRN (11:20)
[2019-02-24] MEDS ORDERED: ACETAMINOPHEN TAB 325 MG TAB PO PRN (11:20)
[2019-02-24] MEDS ORDERED: NALOXONE 0.4 MG/ML 1 ML VIAL IV PRN (11:20)
[2019-02-24] MEDS ORDERED: MORPHINE SULFATE 4 MG/ML SYRINGE IV PRN (11:20)
--- NOTE | 2019-02-24 11:20 | ED ---
Medical Decision Making - Medical Decision Making Patient was attending to be discharge. He was trying to transport himself to the wheelchair and his symptoms acutely and severely recurred. Patient in significant pain. Patient given intravenous fluids and morphine. Given degree of patient's symptoms will have him admitted to observation with consultation to orthopedic spine surgery. he is understandable agreeable to plan. Family is agreeable to disposition. Disposition Clinical Impression: Sciatica, Back pain Disposition: ADMITTED IP TO THIS HOSP Condition: Fair Instructions (If sedation given, give patient instructions): Acute Low Back Pain (ED), Chronic Back Pain (ED) Prescriptions: Cyclobenzaprine [Flexeril] 10 mg PO TID PRN #20 tab PRN Reason: back pain methylPREDNISolone [Medrol Dose Pack] 4 mg PO DIRECTED #1 pack HYDROcodone/APAP 5-325MG [[place] 5-325] 1 tab PO Q6HR PRN 3 Days #12 tab PRN Reason: Severe Pain Referrals: Troy Hayes DO [Doctor of Osteopathic Medicine] - 1-2 days Decision Time: 11:20
[2019-02-24] MEDS ORDERED: MORPHINE SULFATE 4 MG/ML SYRINGE IVP STA (11:22)
[2019-02-24] MEDS ORDERED: SODIUM CHLORIDE 0.9% 1,000 ML IV STA (11:23)
[2019-02-24 11:45] LABS: Basophils # (A) 0.1 k/uL (0-0.2); Basophils % (A) 1 %; Eosinophils # (A) 0.2 k/uL (0-0.7); Eosinophils % (A) 2 %; HCT 53.2 % (39.0-53.0); HGB 18.4 gm/dL (13.0-17.5); Lymphocytes # (A) 1.4 k/uL (1.0-4.8); Lymphocytes % (A) 14 %; MCH 29.8 pg (25.0-35.0); MCHC 34.5 g/dL (31.0-37.0); MCV 86.3 fL (80.0-100.0); Mean Platelet Volume 7.5; Monocytes # (A) 0.4 k/uL (0-1.0); Monocytes % (A) 4 %; Neutrophils # (A) 8.3 k/uL (1.3-7.7); Neutrophils % (A) 79 %; Platelet Count 229 k/uL (150-450); RBC 6.17 m/uL (4.30-5.90); RDW 12.8 % (11.5-15.5); WBC 10.5 k/uL (3.8-10.6)
[2019-02-24 11:54] LABS: Calcium 10.5 mg/dL (8.4-10.2)
[2019-02-24 11:57] LABS: INR 1.1 (<1.2); Prothrombin Time 11.3 sec (9.0-12.0)
[2019-02-24 14:22] VITALS: BMI 33.7
[2019-02-24] MEDS ORDERED: TEMAZEPAM 15 MG CAP PO PRN (14:57)
[2019-02-24] MEDS ORDERED: ALPRAZolam 0.25 MG TAB PO PRN (14:57)
[2019-02-24] MEDS: SODIUM CHLORIDE 0.9% 1,000 ML IV SCH (15:47)
[2019-02-24] MEDS: HYDROmorphone 0.5 MG/0.5 ML SYRINGE IVP PRN ×2 (15:49→21:07)
--- NOTE | 2019-02-24 17:22 | HP ---
HISTORY AND PHYSICAL DATE OF SERVICE: 02/24/2019 CHIEF COMPLAINT: Back pain. HISTORY OF PRESENT ILLNESS: This 48-year-old gentleman with a past medical history of multiple medical problems, history of GERD, hypertension, history elevated liver enzymes, history of cholecystectomy being followed by Dr. Lebron in the outpatient setting is complaining of back pain for the last several months. The patient apparently on and off intermittent upper sharp attacks of back pain which radiated to the left low back. About 4 days ago the patient was standing and the patient felt sharp pain. Pain progressed. Patient unable to do any activities of daily living and the patient came to [facility] and admitted for further evaluation and treatment. There is no history of fever, rigors. No history of headache, loss of consciousness or seizures. The lumbar CT was done which showed diffuse DJD and bilateral intervertebral foramina narrowing and the patient was given symptomatic treatment. Patient admitted for evaluation and treatment. There is no history of fever, rigors. No headache, loss of consciousness, seizures at this time. PAST MEDICAL HISTORY: History of DJD as mentioned earlier. Back pain, history of GERD, hypertension, elevated liver enzymes, cholecystectomy. MEDICATIONS: Prior to admission include home medications are: 1. Prilosec 20 mg q.a.m. 2. Cozaar 50 to 100 mg q.a.m. 3. Ibuprofen 600 mg p.o. 4. Medrol Dosepak p.r.n. 5. [place] 5 mg q.6h p.r.n. 6. Flexeril 10 mg p.o. t.i.d. p.r.n. ALLERGIES: None. FAMILY HISTORY: History of hypertension, father had borderline diabetes. SOCIAL HISTORY: No history of smoking, occasional alcohol. REVIEW OF SYSTEMS: ENT: No diminished vision or hearing. CARDIOVASCULAR: No angina. RESPIRATORY: As mentioned earlier. GI: No nausea. : No dysuria. NERVOUS SYSTEM: No numbness or weakness. ALLERGY/IMMUNOLOGY No asthma. MUSCULOSKELETAL: As mentioned earlier. HEMATOLOGY: No history of anemia. ENDOCRINE: No history of diabetes or hypothyroidism. CONSTITUTIONAL: As mentioned earlier. DERMATOLOGY: Negative. RHEUMATOLOGY: Negative. PSYCHIATRY: As mentioned earlier. PHYSICAL EXAMINATION: Alert and oriented x3. Pulse is 99, blood pressure 167/97, respiration 18, temperature 99 degrees, pulse ox 98% on room air. HEENT: Conjunctivae normal. Mucous membranes moist. Neck is no jugular venous distention. No carotid bruit. No lymph node enlargement. CARDIOVASCULAR: S1, S2. RESPIRATORY: Breath sounds diminished at the bases. No rhonchi, no crackles. ABDOMEN: Soft, nontender. No mass palpable. LEGS: No edema. No swelling. NERVOUS SYSTEM: Higher function as mentioned earlier. The patient's movement of the right left lower leg is painful. There is no other focal motor or sensory deficit. LYMPHATICS: No lymphadenopathy in the neck, axillae, groin. JOINTS: No active deforming arthropathy. LABS: WBC 7, hemoglobin is 18.4. ASSESSMENT: 1. Severe back pain with failure of outpatient treatment, possibly lumbar degenerative joint disease with failure of outpatient treatment. CT scan showed diffuse DJD and as well as bilateral intervertebral foraminal narrowing L5-S1, worse on the left than the right. 2. Gastroesophageal reflux disease. 3. Hypertension. 4. History of elevated LFT. 5. History of orthopedic surgery. 6. FULL CODE. RECOMMENDATIONS AND DISCUSSION: This 48-year-old gentleman presented with multiple complex medical issues, will monitor the patient closely. Continue the current management and symptomatic treatment. Will initiate adequate pain control. I would also recommend a course of steroids. Monitor blood sugars closely. DVT prophylaxis. I would also recommend resume the home medication as well as consult Dr. Hayes, the learning and development specialist. Otherwise, prognosis guarded because of multiple complex medical issues. Further recommendations to follow. See orders for details. Copy of dictation forwarded to Dr. Lebron, who is the primary physician. MMDARRONL / JACQUELINEN: [id number] /
[2019-02-24 17:40] LABS: Glucose,Whole Blood 140 mg/dL (75-99)
[2019-02-24] MEDS: INSULIN ASPART (NovoLOG) 100 UNIT/ML VIAL SQ SCH ×2 (17:44→21:04)
[2019-02-24] MEDS: methylPREDNISolone SOD SUCCI 125 MG/2 ML VIAL IV SCH ×2 (17:44→23:53)
[2019-02-24] MEDS ORDERED: hydrALAZINE HCL 20 MG/ML 1 ML VIAL IVP PRN (18:05)
[2019-02-24] MEDS: cloNIDine HCL 0.1 MG TAB PO PRN (18:46)
[2019-02-24] MEDS: HYDROcodone/APAP 5-325MG 1 EACH TAB PO PRN ×2 (18:49→23:55)
[2019-02-24 19:49] LABS: Glucose,Whole Blood 179 mg/dL (75-99)
[2019-02-24] MEDS: HEPARIN SODIUM,PORCINE 5,000 UNIT/ML 1 ML VIAL SQ SCH (21:03)
[2019-02-24] MEDS: LOSARTAN 50 MG TAB PO SCH (21:04)
[2019-02-24 21:30] LABS: Appearance,Urine Clear (Clear); Bilirubin,Urine Negative (Negative); Blood,Urine Negative (Negative); Color,Urine Yellow; Glucose,Urine (UA) Trace (Negative); Ketones,Urine Negative (Negative); Leukocyte Esterase,Urine Negative (Negative); Nitrite,Urine Negative (Negative); PH, Urine 5.5 (5.0-8.0); Protein,Urine Trace (Negative); Specific Gravity,Urine 1.023 (1.001-1.035); Urobilinogen,Urine <2.0 mg/dL (<2.0)
[2019-02-25] MEDS: methylPREDNISolone SOD SUCCI 125 MG/2 ML VIAL IV SCH ×3 (06:20→18:00)
[2019-02-25] MEDS: HYDROcodone/APAP 5-325MG 1 EACH TAB PO PRN ×3 (06:21→17:49)
[2019-02-25 07:01] LABS: Glucose,Whole Blood 140 mg/dL (75-99)
[2019-02-25] MEDS: INSULIN ASPART (NovoLOG) 100 UNIT/ML VIAL SQ SCH ×4 (08:37→21:00)
[2019-02-25] MEDS: LOSARTAN 50 MG TAB PO SCH ×2 (08:38→21:14)
[2019-02-25] MEDS: PANTOPRAZOLE 40 MG TABLET PO SCH (08:38)
[2019-02-25] MEDS: HEPARIN SODIUM,PORCINE 5,000 UNIT/ML 1 ML VIAL SQ SCH ×3 (08:38→21:00)
--- NOTE | 2019-02-25 08:46 | P.PN ---
Subjective History of present illness This is a pleasant 48 years old male with past medical history of GERD, hypertension, who presents because of worsening low back pain. Patient states that he has back pain for about 3-4 months, getting gradually worse and sometimes in bouts. He sees only chiropractic as an outpatient. Patient states over the last 2-3 days he worsening more severe low back pain about 8/10 in severity, compared to 6/10 currently, radiating to the left hip side, associated with some tingling sensation on the left food when he stands up but not now. Patient denies weakness in the lower extremity. And denies bowel or urine incontinence. Since he came in he did not try to walk. On admission patient had a CT of the lumbar spine which showed degenerative joint disease, patient was started on Solu-Medrol 60 mg. Labs reviewed and hemoglobin 18.4, calcium 10.5. Blood pressure 144/84. Rest of vitals were unremarkable. Review of systems CONSTITUTIONAL: No fever, no malaise, no fatigue. HEENT: No recent visual problems or hearing problems. Denied any sore throat. CARDIOVASCULAR: No orthopnea, PND, no palpitations, no syncope. PULMONARY: No shortness of breath, no cough, no hemoptysis. GASTROINTESTINAL: No diarrhea, no nausea, no vomiting, no abdominal pain. Normoactive bowel sounds. NEUROLOGICAL: No headaches, no weakness, HEMATOLOGICAL: Denies any bleeding or petechiae. GENITOURINARY: Denies any burning micturition, frequency, or urgency. MUSCULOSKELETAL/RHEUMATOLOGICAL: Denies any joint pain, swelling, or any muscle pain. ENDOCRINE: Denies any polyuria or polydipsia. Medication: Tylenol, Xanax, Catapres, heparin, hydralazine, [place], Dilaudid, NovoLog, Toradol, losartan, Solu-Medrol, Zofran, Protonix, Restoril,. Objective - Vital Signs Vital signs: Vital Signs Temp 97.6 F 02/25/19 05:00 Pulse 92 02/25/19 05:00 Resp 16 02/25/19 05:00 BP 144/84 02/25/19 05:00 Pulse Ox 92 L 02/25/19 05:00 Intake & Output 02/24/19 02/25/19 02/25/19 18:59 06:59 18:59 Intake Total 670 Output Total 400 Balance 270 Weight 106.594 kg Intake: Intake, IV Titration 80 Amount Sodium Chloride 0.9% 1, 80 000 ml @ 20 mls/hr IV . Q24H [facility] Rx#:[id number] Oral 590 Output: Urine 400 Other: Voiding Method Urinal # Voids 1 1 - Exam GENERAL: The patient is alert and oriented x3, not in any acute distress. Well developed, well nourished. HEENT: Pupils are round and equally reacting to light. EOMI. No scleral icterus. No conjunctival pallor. Normocephalic, atraumatic. No pharyngeal erythema. No thyromegaly. CARDIOVASCULAR: S1 and S2 present. No murmurs, rubs, or gallops. PULMONARY: Chest is clear to auscultation, no wheezing or crackles. ABDOMEN: Soft, nontender, nondistended, normoactive bowel sounds. No palpable organomegaly. MUSCULOSKELETAL: No joint swelling or deformity. EXTREMITIES: No cyanosis, clubbing, or pedal edema. NEUROLOGICAL: Gross neurological examination did not reveal any focal deficits. Strength 5/5 in both flexion and extension, in all 4 extremities. However flexion of the left thigh, and extension of the left knee is limited by pain. Intact sensation on both sides, upper and lower extremities. Meningeal signs are absent SKIN: No rashes. - Labs CBC & Chem 7: 02/24/19 11:25 02/24/19 11:25 Labs: Abnormal Lab Results - Last 24 Hours (Table) 02/24/19 02/24/19 02/24/19 Range/Units 11:25 11:25 17:35 RBC 6.17 H (4.30-5.90) m/uL Hgb 18.4 H (13.0-17.5) gm/dL Hct 53.2 H (39.0-53.0) % Neutrophils # 8.3 H (1.3-7.7) k/uL Glucose 110 H (74-99) mg/dL POC Glucose (mg/dL) 140 H (75-99) mg/dL Calcium 10.5 H (8.4-10.2) mg/dL Urine Protein (Negative) Urine Glucose (UA) (Negative) 02/24/19 02/24/19 02/25/19 Range/Units 19:47 Unknown 06:58 RBC (4.30-5.90) m/uL Hgb (13.0-17.5) gm/dL Hct (39.0-53.0) % Neutrophils # (1.3-7.7) k/uL Glucose (74-99) mg/dL POC Glucose (mg/dL) 179 H 140 H (75-99) mg/dL Calcium (8.4-10.2) mg/dL Urine Protein Trace H (Negative) Urine Glucose (UA) Trace H (Negative) Assessment and Plan Assessment: Severe back pain, with failure of outpatient therapy. Possibly secondary to lumbar degenerative joint disease. Showed in the CAT scan of the lumbar spine: Bilateral intervertebral foraminal narrowing L5 to S1, worse on the left side. Hypertension History of gastroesophageal reflux disease History of elevated liver function test Plan: This is a pleasant 48 years old male who presents with back pain. Patient was started on steroids, also orthopedic team will evaluate the patient.Labs and medication were reviewed.. Continue same treatment. Continue with symptomatic treatment. Resume home medication. Monitor lytes and vitals. DVT and GI prophylaxis. Further recommendations of the clinical course of the patient DVT prophylaxis: Subcutaneous heparin GI Prophylaxis: Ppi PT/OT: Pending Prognosis is guarded
--- NOTE | 2019-02-25 08:49 | P.CNOR ---
History of Present Illness - [facility] Consult date: 02/25/19 Requesting physician: Jean Manning Consult reason: low back pain, other (Left lower extremity radiculopathy) History of present illness: Patient is a very pleasant 48-year-old male who is seen and examined at bedside with his family present in regards to severe left-sided low back pain and left lower extremity radiculopathy. Patient states for the past 4 months he has had intermittent exacerbation of pain when he gets severe pain in the left side of the lumbar spine with radiation into the left upper buttock and in the left hip. He denies any injuries. He also experiences a tingling sensation that radiates down the posterior thigh, to the calf, into the underside of the left foot. He denies specific weakness in the bilateral lower extremities. He denies any right lower extremity weakness. He has not worked through specific treatment recently. He has worked with managed care analyst in the past.. This past , 02/21/2019, he had an exacerbation of severe pain without injury. He did go to work on Monday. Since that time he had significant difficulty getting out of bed. He presented to the emergency department yesterday, 02/24/2019, for further evaluation. He was attempting to be discharged home from the emergency department but his symptoms were severe and unable to be controlled. He was admitted for further evaluation and treatment. A CT of the lumbar spine was performed. Patient states he does have a history of recent cholecystectomy per formed 2 weeks ago. He was off work for approximately one week and return to work without restrictions after that time. 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 He is eating and voiding without difficulty. He states his pain is been better controlled while in the hospital but admits he has not been out of bed. He is worried about the severity of his symptoms will be once he gets out of bed. He's had difficulty with ambulation on the left lower extremity due to pain. Past Medical History Past Medical History: GERD/Reflux, Hypertension Additional Past Medical History / Comment(s): elevated liver enzymes slightly, gallstones History of Any Multi-Drug Resistant Organisms: None Reported Past Surgical History: Cholecystectomy, Orthopedic Surgery Additional Past Surgical History / Comment(s): R knee hematoma surgically removed from football injury, EGD/colonoscopy. Past Anesthesia/Blood Transfusion Reactions: No Reported Reaction Additional Past Anesthesia/Blood Transfusion Reaction / Comm: no hx blood transfusions Past Psychological History: No Psychological Hx Reported Additional Psychological History / Comment(s): Pt resides with his spouse. They have one daughter at home. He is independent. Smoking Status: Never smoker Past Alcohol Use History: Occasional Past Drug Use History: None Reported - Past Family History Mother Family Medical History: Hypertension Additional Family Medical History / Comment(s): Mother has borderline diabetes. Father Family Medical History: GERD/Reflux Medications and Allergies Home Medications Medication Instructions Recorded Confirmed Type Omeprazole [PriLOSEC] 20 mg PO QAM 04/05/15 02/24/19 History Losartan Potassium [Cozaar] 50 - 100 mg PO QAM 01/10/17 02/24/19 History Ibuprofen 600 mg PO DAILY 02/06/19 02/24/19 History Cyclobenzaprine [Flexeril] 10 mg PO TID PRN #20 tab 02/24/19 Rx HYDROcodone/APAP 5-325MG [[place] 1 tab PO Q6HR PRN 3 Days #12 tab 02/24/19 Rx 5-325] methylPREDNISolone [Medrol Dose 4 mg PO DIRECTED #1 pack 02/24/19 Rx Pack] Allergies Allergy/AdvReac Type Severity Reaction Status Date / Time No Known Allergies Allergy Verified 02/24/19 09:40 Physical Examination Physical exam: Patient is awake, alert, and oriented 3 Vital signs stable Good chest excursion with deep inspiration and expiration Examination of lumbar spine reveals skin is intact with no abrasions, lacerations, or bruises; no erythema, purulence or signs of infection Some pain with deep palpation of the left piriformis Dorsiflexion, plantarflexion, and extensor hallucis longus positive sustained bilaterally Lower extremity strength 5/5 bilaterally Patellar reflex 2+ bilaterally and Achilles reflexes 1+ bilaterally No lower extremity hyperreflexia bilaterally Positive straight leg test on the left lower extremity Negative straight leg test on the right lower extremity Has some difficulty with performing hip flexion with knee in extension on the left Able to perform bilateral hip flexion with knees bent without difficulty No signs or symptoms of DVT; no calf pain No pain with internal and external rotation of the hips bilaterally Neurovascularly intact Results Pertinent studies: CT of the lumbar spine: Overall alignment appears to be adequately maintained; no evidence of vertebral body compression fracture; L1-2 mild degenerative disc disease and facet hypertrophy; L2-3 mild degenerative disc disease and facet hypertrophy; L3 4 mild degenerative disc disease, diffuse disc displacement, and facet hypertrophy; L4-5 mild degenerative disc disease, facet hypertrophy, and diffuse disc displacement; L5-S1 degenerative disc disease, facet hypertrophy, and diffuse disc displacement resulting in bilateral neural foraminal narrowing greater on the left than the right - Labs Labs: Abnormal Lab Results - Last 24 Hours (Table) 02/24/19 02/24/19 02/24/19 Range/Units 11:25 11:25 17:35 RBC 6.17 H (4.30-5.90) m/uL Hgb 18.4 H (13.0-17.5) gm/dL Hct 53.2 H (39.0-53.0) % Neutrophils # 8.3 H (1.3-7.7) k/uL Glucose 110 H (74-99) mg/dL POC Glucose (mg/dL) 140 H (75-99) mg/dL Calcium 10.5 H (8.4-10.2) mg/dL Urine Protein (Negative) Urine Glucose (UA) (Negative) 02/24/19 02/24/19 02/25/19 Range/Units 19:47 Unknown 06:58 RBC (4.30-5.90) m/uL Hgb (13.0-17.5) gm/dL Hct (39.0-53.0) % Neutrophils # (1.3-7.7) k/uL Glucose (74-99) mg/dL POC Glucose (mg/dL) 179 H 140 H (75-99) mg/dL Calcium (8.4-10.2) mg/dL Urine Protein Trace H (Negative) Urine Glucose (UA) Trace H (Negative) H & H 02/24/19 Range/Units 11:25 Hgb 18.4 H (13.0-17.5) gm/dL Hct 53.2 H (39.0-53.0) % Coagulation 02/24/19 Range/Units 11:25 INR 1.1 (<1.2) Result Diagrams: 02/24/19 11:25 02/24/19 11:25 Assessment and Plan Assessment: Assessment: Severe acute on chronic left-sided low back pain Difficulty with ambulation due to pain Left buttock pain Left lower extremity radiculopathy Lumbar degenerative disc disease Lumbar facet spondylosis L5-S1 bilateral neural foraminal narrowing greater on the left than the right History of recent cholecystectomy performed 2 weeks ago History of hypertension History of elevated liver enzymes (1) Acute exacerbation of chronic low back pain Current Visit: Yes Status: Acute Code(s): M54.5 - LOW BACK PAIN; G89.29 - OTHER CHRONIC PAIN SNOMED Code(s): 591726938 (2) Left-sided low back pain with left-sided sciatica Current Visit: Yes Status: Acute Code(s): M54.42 - LUMBAGO WITH SCIATICA, LEFT SIDE SNOMED Code(s): 117802882 (3) Lumbar degenerative disc disease Current Visit: Yes Status: Acute Code(s): M51.36 - OTHER INTERVERTEBRAL DISC DEGENERATION, LUMBAR REGION SNOMED Code(s): 63297750 (4) Lumbar facet arthropathy Current Visit: Yes Status: Acute Code(s): M47.816 - SPONDYLOSIS W/O MYELOPATHY OR RADICULOPATHY, LUMBAR REGION SNOMED Code(s): 490741563 (5) Neural foraminal stenosis of lumbosacral spine Current Visit: Yes Status: Acute Code(s): M99.83 - OTHER BIOMECHANICAL LESIONS OF LUMBAR REGION SNOMED Code(s): 325017241473 (6) History of cholecystectomy Current Visit: Yes Status: Acute Code(s): Z90.49 - ACQUIRED ABSENCE OF OTHER SPECIFIED PARTS OF DIGESTIVE TRACT SNOMED Code(s): 158400545 (7) History of hypertension Current Visit: Yes Status: Acute Code(s): Z86.79 - PERSONAL HISTORY OF OTHER DISEASES OF THE CIRCULATORY SYSTEM SNOMED Code(s): 698706860 Plan: Plan: 1. After physical examination of the patient, further discussion with the lauren ent, reviewing of imaging, and further discussion with the patient's family, we will currently planned to obtain an MRI of the lumbar spine for further evaluation. Patient symptoms have been intermittent over the past 4 months but when present are severe and debilitating. He does have some degenerative changes in his lumbosacral spine with evidence of neural foraminal narrowing greater on the left and right L5-S1. This level appears to correlate well with his current symptoms. Following the MRI results, we will review the MRI and follow up with a plan of care. We are currently planning to exhaust conservative treatment before discussing the possibility of surgical intervention. We will also plan to consult with pain management to discuss possible treatment options with the patient including the possibility of injections. Patient and his family feel this is a good plan of care. 2. Consultation will be placed with pain management 3. Patient will continue to be seen and examined by medicine Time with Patient: Greater than 30 (Including obtaining history, physical examination, reviewing of imaging, and dictation.)
[2019-02-25] MEDS ORDERED: LOSARTAN 50 MG TAB PO SCH (09:00)
[2019-02-25] MEDS ORDERED: PANTOPRAZOLE 40 MG/10 ML VIAL IV SCH (09:00)
[2019-02-25 09:58] LABS: Basophils % (A) 0 %; Eosinophils # (A) 0.1 k/uL (0-0.7); Eosinophils % (A) 1 %; HCT 53.1 % (39.0-53.0); HGB 18.3 gm/dL (13.0-17.5); Lymphocytes # (A) 0.8 k/uL (1.0-4.8); Lymphocytes % (A) 4 %; MCH 30.1 pg (25.0-35.0); MCHC 34.5 g/dL (31.0-37.0); MCV 87.3 fL (80.0-100.0); Mean Platelet Volume 7.1; Monocytes # (A) 0.5 k/uL (0-1.0); Monocytes % (A) 2 %; Neutrophils # (A) 18.8 k/uL (1.3-7.7); Neutrophils % (A) 93 %; Platelet Count 247 k/uL (150-450); RBC 6.09 m/uL (4.30-5.90); RDW 12.8 % (11.5-15.5); WBC 20.2 k/uL (3.8-10.6)
[2019-02-25 10:07] LABS: Calcium 10.1 mg/dL (8.4-10.2); Potassium 4.8 mmol/L (3.5-5.1)
[2019-02-25 11:21] LABS: Glucose,Whole Blood 131 mg/dL (75-99)
--- NOTE | 2019-02-25 11:23 | P.PAINCN ---
History of Present Illness - Reason for Consult Consult date: 02/25/19 back and leg pain - History of Present Illness Mr. Jay is a 48-year-old gentleman who presents to the hospital with acute on chronic low back pain. He reports he has had chronic back pain for many years but he reports this pain significantly worse in the past couple weeks. Approximately 2 weeks ago he had a cholecystectomy and since then he is been recumbent and is worried about standing or walking because of this pain. He reports unable to walk very far secondary to his pain going down the leg. He reports he has not had any injections in the past and is concerned about his pain is getting worse. He was examined by orthopedic surgeons and they did order a CAT scan which revealed some neural foraminal narrowing at the L5-S1 levels. He reports pain going down his leg describes a sharp shooting pain associated with numbness and tingling. He denies any significant weakness in his lower extremities or upper extremities. He denies any bowel or bladder incontinence. As of abdominal pain secondary to his recent surgery. He reports pain medication that he's been given in the hospital is helping with his pain. He's had direct care supervisor in the past. Past Medical History Past Medical History: GERD/Reflux, Hypertension Additional Past Medical History / Comment(s): elevated liver enzymes slightly, gallstones History of Any Multi-Drug Resistant Organisms: None Reported Past Surgical History: Cholecystectomy, Orthopedic Surgery Additional Past Surgical History / Comment(s): R knee hematoma surgically removed from football injury, EGD/colonoscopy. Past Anesthesia/Blood Transfusion Reactions: No Reported Reaction Additional Past Anesthesia/Blood Transfusion Reaction / Comm: no hx blood transfusions Past Psychological History: No Psychological Hx Reported Additional Psychological History / Comment(s): Pt resides with his spouse. They have one daughter at home. He is independent. Smoking Status: Never smoker Past Alcohol Use History: Occasional Past Drug Use History: None Reported - Past Family History Mother Family Medical History: Hypertension Additional Family Medical History / Comment(s): Mother has borderline diabetes. Father Family Medical History: GERD/Reflux Medications and Allergies Home Medications Medication Instructions Recorded Confirmed Type Omeprazole [PriLOSEC] 20 mg PO QAM 04/05/15 02/24/19 History Losartan Potassium [Cozaar] 50 - 100 mg PO QAM 01/10/17 02/24/19 History Ibuprofen 600 mg PO DAILY 02/06/19 02/24/19 History Cyclobenzaprine [Flexeril] 10 mg PO TID PRN #20 tab 02/24/19 Rx HYDROcodone/APAP 5-325MG [[place] 1 tab PO Q6HR PRN 3 Days #12 tab 02/24/19 Rx 5-325] methylPREDNISolone [Medrol Dose 4 mg PO DIRECTED #1 pack 02/24/19 Rx Pack] Allergies Allergy/AdvReac Type Severity Reaction Status Date / Time No Known Allergies Allergy Verified 02/24/19 09:40 Physical Exam Vitals: Vital Signs Temp Pulse Pulse Resp BP BP Pulse Ox 02/25/19 05:00 97.6 F 92 16 144/84 92 L 02/24/19 21:00 97.9 F 97 18 154/84 93 L 02/24/19 18:44 110 H 178/95 94 L 02/24/19 17:50 124 H 190/109 02/24/19 13:55 98 F 99 18 167/97 02/24/19 11:38 82 18 157/104 98 02/24/19 11:05 97.9 F 79 18 162/92 99 Intake and Output 02/24/19 02/25/19 02/25/19 22:59 06:59 14:59 Intake Total 80 590 Output Total 400 550 Balance -320 590 -550 Intake: Intake, IV Titration 80 Amount Sodium Chloride 0.9% 1, 80 000 ml @ 20 mls/hr IV . Q24H ON LICENSE OF [facility] Rx#:[id number] Oral 590 Output: Urine 400 550 Other: Voiding Method Urinal # Voids 1 General: Awake and alert oriented 3 no distress, Respiratory exam: No audible wheezing no accessory muscle usage Cardiovascular exam: regular rate, palpable bilateral pulses, no lower extremity edema Abdominal exam: No distention nontender to palpation Cervical spine: Normal alignment, Spurling's negative, facet loading negative, Connolly's is negative Lumbar spine: Loss of lumbar lordosis, normal alignment, tender to palpation over bilateral paraspinal muscles, facet loading is positive bilaterally. Straight leg raise is positive. SLR is positive at about 25 degrees, pain with external rotation of the hip but none with flexion or internal rotation. Unable to fully asses spine due to pain. Unable to stand due to pain Sacroiliac joints: unable to fully assess secondary to pain Neuro exam: Normal sensation in bilateral upper extremities, deep tendon reflexes are 2+ bilateral upper extremities. Normal sensation in bilateral lower extremities. Deep tendon reflexes are 1 + in lower extremities Psych exam: Cooperative, appropriate mood Results CBC & Chem 7: 02/25/19 09:45 02/25/19 09:45 Labs: Abnormal Lab Results - Last 24 Hours (Table) 02/24/19 02/24/19 02/24/19 Range/Units 11:25 11:25 17:35 RBC 6.17 H (4.30-5.90) m/uL Hgb 18.4 H (13.0-17.5) gm/dL Hct 53.2 H (39.0-53.0) % Neutrophils # 8.3 H (1.3-7.7) k/uL Glucose 110 H (74-99) mg/dL POC Glucose (mg/dL) 140 H (75-99) mg/dL Calcium 10.5 H (8.4-10.2) mg/dL Urine Protein (Negative) Urine Glucose (UA) (Negative) 02/24/19 02/24/19 02/25/19 Range/Units 19:47 Unknown 06:58 RBC (4.30-5.90) m/uL Hgb (13.0-17.5) gm/dL Hct (39.0-53.0) % Neutrophils # (1.3-7.7) k/uL Glucose (74-99) mg/dL POC Glucose (mg/dL) 179 H 140 H (75-99) mg/dL Calcium (8.4-10.2) mg/dL Urine Protein Trace H (Negative) Urine Glucose (UA) Trace H (Negative) Assessment and Plan Assessment: #1 lumbar radiculopathy #2 degenerative disc disease #3 neural foraminal narrowing at L5-S1 level Plan: After review of the medical records, examination of the patient, and discussion with the patient. I did advise him that I do believe an epidural steroid injection would offer him some relief. It discussed with him that we wouldn't be able to do today because the patient did received heparin this morning at 8:30 AM. I advised him that we can potentially do this either tomorrow if he still hospital or we can do this as an outpatient. If he does go home today I would recommend sending him home with 2-3 days of [place] 7.5 mg 3 times per day and start him on a Medrol Dosepak along with ibuprofen 800 mg 3 times per day for the next 7 days. If he still hospital tomorrow we will like we try to perform an epidural steroid injection. I advised the nurse to put a hold on the heparin if he still here in the morning. PQRS Measure Charge Sheet Measure #130: Documentation of Current Meds in Medical Chart: Patient's medications documented in chart Measure #226: Tobacco Use: Screen & Cessation Intervention: Pt not a tobacco user Measure #111: Pneumonia Vaccination: Pneumococcal vaccine administered or previously received Measure #47: Advance Care Plan: Advance care planning discussed & documented, plan or surrogate given PQRS Narrative: Smoking Status Never smoker Do You Want the Pneumonia No Vaccine AT THIS TIME? Blood Pressure [Right Arm] 144/84 Blood Pressure 157/104 Pain Intensity [Left Back] 0 Pain Intensity 4 Pain Scale Used Numeric (1 - 10) Scale Used Numeric (1 - 10) Home Medications: Ambulatory Orders Omeprazole [PriLOSEC] 20 mg PO QAM 04/05/15 Losartan Potassium [Cozaar] 50 - 100 mg PO QAM 01/10/17 Ibuprofen 600 mg PO DAILY 02/06/19 Cyclobenzaprine [Flexeril] 10 mg PO TID PRN #20 tab 02/24/19 HYDROcodone/APAP 5-325MG [[place] 5-325] 1 tab PO Q6HR PRN 3 Days #12 tab 02/24/19 methylPREDNISolone [Medrol Dose Pack] 4 mg PO DIRECTED #1 pack 02/24/19
[2019-02-25] MEDS: HYDROmorphone 0.5 MG/0.5 ML SYRINGE IVP PRN ×2 (15:36→20:58)
[2019-02-25] MEDS: SODIUM CHLORIDE 0.9% 1,000 ML IV SCH (15:38)
[2019-02-25 16:51] LABS: Glucose,Whole Blood 184 mg/dL (75-99)
[2019-02-25 21:00] LABS: Glucose,Whole Blood 143 mg/dL (75-99)
[2019-02-25] MEDS ORDERED: NAPROXEN 250 MG TAB PO ONE (23:00)
[2019-02-25] MEDS: predniSONE 20 MG TAB PO SCH (23:10)
[2019-02-25] MEDS: BACLOFEN 10 MG TAB PO SCH (23:10)
--- NOTE | 2019-02-25 23:32 | PN ---
PROGRESS NOTE DATE OF SERVICE: February 25, 2019. PRESENTING COMPLAINT: Acute on chronic low back pain. INTERVAL HISTORY: Patient presented with acute flare-up of chronic low back pain, not controlled with radiculopathy. Seen by Dr. Hayes, who did consult the Pain Services who will do epidural steroid injection tomorrow. Lying in bed. The patient has not had a bowel movement since he has come in after getting his pain medications. REVIEW OF SYSTEMS: Done for constitutional, cardiovascular, GI, pulmonary and relevant findings as above. CURRENT MEDICATIONS: Reviewed and they include IV Solu-Medrol. PHYSICAL EXAMINATION: VITAL SIGNS: Temperature 97.3, pulse 99, respiration 16, blood pressure 150/83, pulse ox 92 percent on room. GENERAL APPEARANCE: Sitting up in bed, a bit uncomfortable. EYES: Pupils equal. Conjunctivae normal. NECK: JVD not raised. RESPIRATORY: Effort normal. LUNGS are clear. CARDIOVASCULAR: 1st and 2nd heart sounds normal. No edema. ABDOMEN: Soft, nontender. Liver and spleen not palpable. PSYCHIATRY: Alert and oriented times three. Mood and affect normal. MUSCULOSKELETAL: Able to raise both legs off the bed. INVESTIGATIONS: White count 20.2, hemoglobin 18.3, potassium 4.8. ASSESSMENT: 1. Acute L5-S1 arthropathy with radiculopathy, uncontrolled. 2. Leukocytosis from steroids. 3. Gastroesophageal reflux disease. 4. Essential hypertension. PLAN: The patient is on IV Solu-Medrol. We will switch to p.o. prednisone. We will add naproxen for anti-inflammatory affect and baclofen for muscle spasm. The patient was seen by Orthopedics due for steroid injection. The patient encouraged to be out of bed. The patient given discharge after steroid injections tomorrow. Care was discussed with the patient. Questions were answered. MMODL / IJN: [id number] /
[2019-02-26] MEDS: HYDROcodone/APAP 5-325MG 1 EACH TAB PO PRN ×3 (06:13→21:53)
[2019-02-26 06:46] LABS: Glucose,Whole Blood 139 mg/dL (75-99)
[2019-02-26] MEDS: INSULIN ASPART (NovoLOG) 100 UNIT/ML VIAL SQ SCH ×4 (07:34→20:28)
[2019-02-26] MEDS: BACLOFEN 10 MG TAB PO SCH ×3 (07:35→21:53)
[2019-02-26] MEDS: predniSONE 20 MG TAB PO SCH (07:35)
[2019-02-26] MEDS: PANTOPRAZOLE 40 MG TABLET PO SCH (07:35)
[2019-02-26] MEDS: LOSARTAN 50 MG TAB PO SCH ×2 (07:36→20:35)
[2019-02-26] MEDS: NAPROXEN 250 MG TAB PO SCH ×2 (07:36→20:35)
[2019-02-26 11:16] LABS: Glucose,Whole Blood 116 mg/dL (75-99)
[2019-02-26] MEDS ORDERED: LACTATED RINGERS 1,000 ML IV ONE (11:18)
--- NOTE | 2019-02-26 12:17 | P.PCN ---
Date of Procedure: 02/26/19 Procedure(s) Performed: PREOPERATIVE DIAGNOSIS: 1- Lumbar Degenerative Disc Diseases 2-Lumbar spondylosis with Facet arthropathy without myelopathy. 3-lumbar radiculopathy. 4-lumbar foraminal stenosis POSTOPERATIVE DIAGNOSIS: Same as preoperative diagnosis PROCEDURE 1. Lumbar epidural steroid injection under fluoroscopic guidance at the L5-S1 level. 2. Lumbar epidurogram. ANESTHESIA: Local with 1% lidocaine 3 ml and , moderate sedation with intravenous Versed 2 mg ,and fentanyle 100 Mcg EBL: Minimal PROCEDURE INDICATION: The patient with low back pain and radiculitis symptoms unresponsive to conservative treatment. Fluoroscopy was used to optimize visualization of the needle placement and to maximize safety. PROCEDURE DESCRIPTION / TECHNIQUE: The patient was seen and identified in the preoperative area. Risks, benefits, complications including but not limited to infections ,bleeding ,allergic reaction to the medications ,nerve damage and not complete pain releife , and alternatives were discussed with the patient. The patient agreed to proceed with the procedure and signed the consent. IV was started, and vital signs were stable. Patient was taken to the OR and time out was completed. The patient was placed in the prone position on procedure table and a pillow was placed under the abdomen to reduce lumbar lordosis. The lumbosacral area was prepped and draped in the usual sterile fashion.ere closely monitored during the procedure. Con scious sedation was used during the procedure to decrease patients anxiety. Vital signs was monitered during the entire procedure. Using anterior-posterior fluoroscopy, the L5-S1 interlaminar space was identified and the skin over this site was marked and then infiltrated with 1% lidocaine subcutaneously. Subsequently, a 20-gauge Tuohy epidural needle was inserted and advanced toward the epidural space using the ``Loss of resistance technique and guided by AP and lateral fluoroscopy. The correct needle position in the epidural space was verified with the injection of 2 mL of the water soluble contrast dye Isovue 200 contrast and observing an excellent epidurogram with the epidural spread of the dye, after negative aspiration for blood and CSF and in the absence of paresthesias. Again after negative aspiration, a 6 ml mixture containing 80 mg of Depo-medrol , and 2 ml of preservative free Normal Saline, and 2 ml of preservative free lidocaine 1% solution was injected and a washout of epidurogram was seen. Needle was withdrawn intact, skin was cleansed, and bandages were applied. COMPLICATIONS: None DISPOSITION / PLANS: The patient was placed in a supine position and transferred to the recovery area in a stable condition for observation. There was no evidence of lower extremity motor or sensory deficit after the procedure. Patient was discharged from the recovery room after meeting discharge criteria. Home discharge instructions were given to the patient by the staff. The patient was reexamined prior to discharge. The patient will schedule a follow up in the clinic in 2-4 weeks.
--- NOTE | 2019-02-26 13:50 | FL ---
Fluoroscopy INDICATION: Pain FINDINGS: Fluoroscopy time: 4 seconds. Images obtained: 1. IMPRESSIONS: 1. Documentation of fluoroscopy.
[2019-02-26] MEDS: SODIUM CHLORIDE 0.9% 1,000 ML IV SCH (16:31)
[2019-02-26 16:46] LABS: Glucose,Whole Blood 167 mg/dL (75-99)
[2019-02-26] MEDS: KETOROLAC 30 MG/ML 1 ML VIAL IVP PRN (18:02)
[2019-02-26 20:04] LABS: Glucose,Whole Blood 111 mg/dL (75-99)
[2019-02-26] MEDS: HEPARIN SODIUM,PORCINE 5,000 UNIT/ML 1 ML VIAL SQ SCH (20:35)
[2019-02-27] MEDS: KETOROLAC 30 MG/ML 1 ML VIAL IVP PRN ×2 (02:33→08:26)
--- NOTE | 2019-02-27 05:24 | PN ---
PROGRESS NOTE DATE OF SERVICE: 02/26/2019 PRESENTING COMPLAINT: Low back pain. INTERVAL HISTORY: The patient presented with acute flare up of chronic low back pain with radiculopathy. The patient did get a steroid injection from Pain Services. The pain is somewhat better. , patient not keen to go home because of pain. I did tell the nurse to have the patient out of bed. Tolerating a diet. REVIEW OF SYSTEMS: Done for constitutional, cardiovascular, GI, pulmonary, musculoskeletal; relevant findings as above. CURRENT MEDICATIONS: Current medications are reviewed. PHYSICAL EXAMINATION: On examination, temperature 97.8 pulse 92, respiration 17, blood pressure 157/90, pulse ox 94% on room air. GENERAL APPEARANCE: Up in bed. EYES: Pupils equal. Conjunctivae normal. NECK: JVD not raised. Mass not palpable. RESPIRATORY: Effort normal. Lungs are clear. CARDIOVASCULAR: First and second sounds normal. No edema. ABDOMEN: Soft, nontender. Liver and spleen not palpable. PSYCHIATRY: Alert and oriented x3. Mood and affect normal. INVESTIGATIONS: Accu-Cheks are noted. ASSESSMENT: 1. Acute L5-S1 radiculopathy and arthropathy, status post steroid injection. 2. Gastroesophageal reflux disease. 3. Essential hypertension. PLAN: Patient's current medications include Toradol, naproxen, Protonix, baclofen. Patient does not want to go home. Per Pain Services, patient to stay on until pain is better. MMODL / IJN: [id number] /
[2019-02-27] MEDS: HYDROcodone/APAP 5-325MG 1 EACH TAB PO PRN ×2 (05:34→11:34)
[2019-02-27] MEDS: cloNIDine HCL 0.1 MG TAB PO PRN (05:35)
[2019-02-27 05:40] VITALS: RESP 16
[2019-02-27 06:54] LABS: Glucose,Whole Blood 94 mg/dL (75-99)
[2019-02-27] MEDS: INSULIN ASPART (NovoLOG) 100 UNIT/ML VIAL SQ SCH ×2 (07:43→11:30)
[2019-02-27] MEDS: PANTOPRAZOLE 40 MG TABLET PO SCH (07:44)
[2019-02-27] MEDS: BACLOFEN 10 MG TAB PO SCH (07:44)
[2019-02-27] MEDS: predniSONE 20 MG TAB PO SCH (07:44)
[2019-02-27] MEDS: LOSARTAN 50 MG TAB PO SCH (07:44)
[2019-02-27] MEDS: HEPARIN SODIUM,PORCINE 5,000 UNIT/ML 1 ML VIAL SQ SCH (07:45)
[2019-02-27] MEDS: NAPROXEN 250 MG TAB PO SCH (07:45)
[2019-02-27] MEDS: SODIUM CHLORIDE 0.9% 1,000 ML IV SCH (10:42)
[2019-02-27 11:01] LABS: Glucose,Whole Blood 123 mg/dL (75-99)
[2019-02-27 11:59] VITALS: BP 167/88; PULSE 79; TEMP 97.8
--- NOTE | 2019-02-28 00:19 | DS ---
DISCHARGE SUMMARY DATE OF ADMISSION: 02/24/2019. DATE OF DISCHARGE: 02/27/2019. FINAL DIAGNOSES: 1. Acute L5-S1 radiculopathy and arthropathy. 2. Gastroesophageal reflux disease. 3. Essential hypertension. CONSULTATION: 1. Dr. Iverson from Interventional Pain. 2. Dr. Cedric Lees from Pain Management team. 3. Dr. Jaiver Hayes from [facility]. HOSPITAL COURSE: This patient presented with acute on chronic low back pain, felt to have some arthritic upper level radiculopathy. The patient did have a steroid injection. Doing better at the time of discharge. On the day of discharge, care was discussed at length with the patient and his . Different medication side effects and any major side effects of long-term narcotics discussed. The patient did show a good understanding of the same. Overall doing better. Discussion and discharge planning more than 35 minutes. PHYSICAL EXAMINATION: Temperature 97.8, pulse 79, respirations 16, blood pressure 167/88, pulse ox 95% on room air. LUNGS: Clear. CARDIOVASCULAR: First and second sounds normal. INVESTIGATION: Accu-Cheks are noted. DISCHARGE MEDICATIONS: 1. Prilosec 20 mg p.o. daily. 2. Baclofen 5 mg every 8 p.r.n. 3. Cozaar 50 mg p.o. b.i.d. 4. Melatonin 3 mg at bedtime p.r.n. 5. Naproxen 500 mg p.o. b.i.d. 14 tablets. 6. Prednisone taper. FOLLOWUP: 1. [facility] 03[facility]12/2019. 2. Dr. Lebron on 03/05/2019. 3. Dr. Hayes on 03/15/2019. 4. The patient may return to work next Monday. Discussion and discharge planning more than 35 minutes. MMODL / IJN: [id number] /
== END 2019-02-27 14:30 | disposition home or self-care (01) ==
LOC: EC 08:55 → 3NMEDONC 11:20
PROVIDERS: ADMIT Hospitalist; ATTEND Hospitalist
DX: M51.16 Intervertebral disc disorders with radiculopathy, lumbar region (principal); M51.17 Intervertebral disc disorders with radiculopathy, lumbosacral region; M12.9 Arthropathy, unspecified; M48.07 Spinal stenosis, lumbosacral region; M48.061 Spinal stenosis, lumbar region without neurogenic claudication; M47.26 Other spondylosis with radiculopathy, lumbar region; M46.96 Unspecified inflammatory spondylopathy, lumbar region; I10 Essential (primary) hypertension; K21.9 Gastro-esophageal reflux disease without esophagitis; D72.829 Elevated white blood cell count, unspecified; T38.0X5A Adverse effect of glucocorticoids and synthetic analogues, initial encounter; G89.29 Other chronic pain; Z79.899 Other long term (current) drug therapy; Z79.1 Long term (current) use of non-steroidal anti-inflammatories (NSAID); Z90.49 Acquired absence of other specified parts of digestive tract; Z79.891 Long term (current) use of opiate analgesic; Z79.52 Long term (current) use of systemic steroids; Z83.3 Family history of diabetes mellitus
CPT/HCPCS: 99152; 96376 ×2; 96372 ×5; 96375 ×2; 96374; 97162; 80048 ×2; 85025 ×2; 85610; 81003; 72131; 62323; G0378 ×4; J8540; J2250; J1030; J1644 ×4; J2930 ×2; J2405; J3010; J1885 ×3; J7512 ×3; J1170 ×2; Q9966

== ENCOUNTER 2019-03-12 06:31 | Day surgery (SDC) | payer BC ==
[2019-03-08 11:54] VITALS: BMI 33.7
[~2019-03-12 06:31] MED LIST changes: -DEXAMETHASONE SOD PHOSPHATE 10 MG/ML 1 ML VIAL IV ONE; -HEPARIN SODIUM,PORCINE 5,000 UNIT/ML 1 ML VIAL SQ ONE; -HYDROmorphone 0.5 MG/0.5 ML SYRINGE IVP PRN; -MIDAZOLAM (PF) 2 MG/2 ML VIAL IV PRN; -ONDANSETRON 4 MG/2 ML VIAL IVP ONE; -SCOPOLAMINE 1.5MG/72HR PATCH TRANSDERM ONE; -ceFAZolin IN SWFI 2 GM/20 ML SYRINGE IVP ONE
[2019-03-12 06:56] LABS: Glucose,Whole Blood 129 mg/dL (75-99)
[2019-03-12 07:01] LABS: Glucose,Whole Blood 86 mg/dL (75-99)
[2019-03-12 07:03] VITALS: RESP 16; TEMP 98.2
--- NOTE | 2019-03-12 07:44 | P.PCN ---
Date of Procedure: 03/12/19 Procedure(s) Performed: PREOPERATIVE DIAGNOSIS: 1- Lumbar Degenerative Disc Diseases 2-Lumbar spondylosis with Facet arthropathy without myelopathy. 3-lumbar radiculopathy. 4-lumbar foraminal stenosis POSTOPERATIVE DIAGNOSIS: Same as preoperative diagnosis PROCEDURE 1. Lumbar epidural steroid injection under fluoroscopic guidance at the L5-S1 level. ( #2 ) 2. Lumbar epidurogram. ANESTHESIA: Local with 1% lidocaine 3 ml and , moderate sedation with intrav enous Versed 2 mg ,and fentanyle 100 Mcg EBL: Minimal PROCEDURE INDICATION: The patient with low back pain and radiculitis symptoms unresponsive to conservative treatment. Fluoroscopy was used to optimize visualization of the needle placement and to maximize safety. PROCEDURE DESCRIPTION / TECHNIQUE: The patient was seen and identified in the preoperative area. Risks, benefits, complications including but not limited to infections ,bleeding ,allergic reaction to the medications ,nerve damage and not complete pain releife , and alternatives were discussed with the patient. The patient agreed to proceed with the procedure and signed the consent. IV was started, and vital signs were stable. Patient was taken to the OR and time out was completed. The patient was placed in the prone position on procedure table and a pillow was placed under the abdomen to reduce lumbar lordosis. The lumbosacral area was prepped and draped in the usual sterile fashion.ere closely monitored during the procedure. Conscious sedation was used during the procedure to decrease patients anxiety. Vital signs was monitered during the entire procedure. Using anterior-posterior fluoroscopy, the L5-S1 interlaminar space was identified and the skin over this site was marked and then infiltrated with 1% lidocaine subcutaneously. Subsequently, a 20-gauge Tuohy epidural needle was inserted and advanced toward the epidural space using the ``Loss of resistance technique and guided by AP and lateral fluoroscopy. The correct needle position in the epidural space was verified with the injection of 2 mL of the water soluble contrast dye Isovue 200 contrast and observing an excellent epidurogram with the epidural spread of the dye, after negative aspiration for blood and CSF and in the absence of paresthesias. Again after negative aspiration, a 6 ml mixture containing 80 mg of Depo-medrol , and 2 ml of preservative free Normal Saline, and 2 ml of preservative free lidocaine 1% solution was injected and a washout of epidurogram was seen. Needle was withdrawn intact, skin was cleansed, and bandages were applied. COMPLICATIONS: None DISPOSITION / PLANS: The patient was placed in a supine position and transferred to the recovery area in a stable condition for observation. There was no evidence of lower extremity motor or sensory deficit after the procedure. Patient was discharged from the recovery room after meeting discharge criteria. Home discharge instructions were given to the patient by the staff. The patient was reexamined prior to discharge. The patient will schedule a follow up in the clinic in 2-4 weeks.
[2019-03-12] MEDS ORDERED: IV FLUID CONTINUATION 1,000 ML IV ONE (08:05)
--- NOTE | 2019-03-12 08:05 | FL ---
EXAMINATION TYPE: FL guided pain mgmt statistic DATE OF EXAM: 03/12/2019 CLINICAL HISTORY: Low back pain. TECHNIQUE: Fluoroscopy. COMPARISON: None. FINDINGS: Fluoroscopic guidance was provided during pain relief procedure performed by Dr. Magaña . A total of 1 seconds of fluoroscopic time was utilized during the procedure and 1 spot images are acquired. Images acquired shows needle localization of the lumbar spine. IMPRESSION: As Above.
[2019-03-12 08:14] VITALS: BP 144/89; PULSE 86
== END 2019-03-12 08:19 | disposition home or self-care (01) ==
LOC: ORPAIN 06:31
PROVIDERS: ATTEND Specialist
DX: M51.16 Intervertebral disc disorders with radiculopathy, lumbar region (principal); M51.06 Intervertebral disc disorders with myelopathy, lumbar region; M48.061 Spinal stenosis, lumbar region without neurogenic claudication
CPT/HCPCS: 62323; J2250; J1030; J3010; Q9966

== ENCOUNTER → 2019-04-11 | Outpatient (CLI) | payer BC ==
[2019-04-11 13:15] VITALS: BP 153/11; PULSE 90; RESP 16
--- NOTE | 2019-04-11 13:49 | P.PN ---
Subjective Progress Note Date: 04/11/19 This is a follow-up visit for this 48 years old male, a history of severe and chronic low back pain with radiation to the lower extremity diagnosed with lumbar radiculopathy, status post lumbar epidural steroid injections 2, she had minimal benefit after the epidural steroid injection and he continued to have severe low back pain with radiation to the lower extremity mainly to the left side, the intensity of the pain increases with any activity, patient had a new MRI of the lumbar spine done recently and it showed patient had multilevel central canal stenosis and multilevel central disc protrusion at L2-3 and L3 4 L4 5 and L5-S1 and he had facet joint degeneration Objective - Vital Signs Vital signs: Vital Signs Temp Pulse 90 04/11/19 13:02 Resp 16 04/11/19 13:02 BP 153/11 04/11/19 13:02 Pulse Ox 97 04/11/19 13:02 Intake & Output 04/10/19 04/11/19 04/11/19 18:59 06:59 18:59 Weight 99.79 kg - Exam Physical Examinations : -Constitutiona : Cooperative , not in acute distress . -HEENT : nech ; supple , no Lymphadenopathy , normal thyroid size . eyes : no ptosis , no icterus, no photophobia . ENT : normal of hearing , normal oropharynx , no Thrush . - Respiratory : Chest clear to auscultations Bilaterally , no wheezing , no Rhonchi . - Cardiovascula : regular rate and rhythem , S1 , S2 , no S3 , no S4. - Gastrointestina : abdomen soft no tenderness , bowel sounds , no organomegally . - Genitourinary : Defferred . - neurologic : Cranial nerve II to XII intact , no focal neurological deffecit . -psychatric : alert , oriented X 3 , appropriate affect , intact judgment and insight . -Lymphatic : no Lymphadenopathy . - musculoskeltal : Lumber spine moter stegnth lower extremities ,thigh and legs 5/5 Right side , 5/5 Left side deep tendon reflexes : normal Knee Jerk , normal ankle Jerk lumber facet Loading Test Positive Range of motion of the lumbar spine Flexion 30 degrees, extension 10 degrees strait leg raising test , positive at 30 degree Left side that is positive at 60 on the right side Fabere test positive RT and positive LT .. Assessment and Plan Plan: Assessment and plan= lumbar radiculopathy, lumbar disc herniation and lumbar spinal stenosis, lumbar spondylosis with lumbar facet arthropathy Patient continued to have pain after lumbar epidural steroid injections 2 He will follow up with Dr. Hayes for evaluation. - PQRS measures = - Patient's medications are documented in the chart. -Tobacco use is negative and counseling.Given. -Patient's has not received pneumococcal vaccine. -Advanced care planning discussed, patient not eligible. -Opiate contract not signed. -Pain positive and follow-up with orthopedic surgeon. -Patient's blood pressure measured [ 153/80 on 11 ] , and documented in the record ,and patient will follow up with the primary care. -Patient's weight was measured and body mass index [ 31.6 ] above the normal limits and counseling was done. and patient instructed to follow-up with the primary care physician. -Patient was not identified as an unhealthy alcohol user Time with Patient: Less than 30
== END | disposition home or self-care (01) ==
LOC: PNWHC3 12:24
PROVIDERS: ATTEND Specialist
DX: G89.29 Other chronic pain (principal); M48.061 Spinal stenosis, lumbar region without neurogenic claudication; M51.16 Intervertebral disc disorders with radiculopathy, lumbar region; M47.26 Other spondylosis with radiculopathy, lumbar region; M46.86 Other specified inflammatory spondylopathies, lumbar region; Z98.890 Other specified postprocedural states
CPT/HCPCS: 99211

== ENCOUNTER 2019-08-12 10:21 | Observation (INO) | payer BC ==
[2019-08-12] MEDS ORDERED: KETOROLAC 30 MG/ML 1 ML VIAL IVP STA (11:09)
[2019-08-12] MEDS ORDERED: MORPHINE SULFATE 4 MG/ML SYRINGE IV STA (11:09)
[2019-08-12] MEDS ORDERED: SODIUM CHLORIDE 0.9% 1,000 ML IV STA ×2 (11:09)
[2019-08-12] MEDS ORDERED: methylPREDNISolone SOD SUCCI 125 MG/2 ML VIAL IV STA (11:10)
[2019-08-12] MEDS ORDERED: ORPHENADRINE 30 MG/ML 2 ML VIAL IVP STA (11:10)
--- NOTE | 2019-08-12 11:12 | ED ---
Back Pain HPI - General Chief Complaint: Back Pain/Injury Stated Complaint: back pain Time Seen by Provider: 08/12/19 10:48 Source: patient, RN notes reviewed, old records reviewed Limitations: no limitations - History of Present Illness Initial Comments: Patient is a 48-year-old male, presents emergency Department today with lower back injury starting on Monday. He reports that he was helping his daughter with slow building and was doing a lot of bending and lifting. Patient reports that he had a discectomy and laminectomy done in April by Dr. Hayes. He reports that since Monday and Monday he has not been able to get comfortable and describes onset of pain. He reports is worse with certain movements and radiates towards his right hip. Patient states that he went to see orthopedics today, and was unable to even get into the office with severe pain. He reports that the PA greeted him in the parking lot and told him to come directly to the emergency room. He denies any saddle anesthesias. He denies any changes in urination or bowel habits. He states it is painful for him to sit down completely therefore hard to have a bowel movement. Patient states that he is had history of hypertension to take his hypertensive medicines today. He denies any abdominal pain. Eyes any chest pain, shortness of breath. Patient reports that he had a lay on the carpet and his and daughter had to drag him out of the house to get him into the car. - Related Data Home Medications Medication Instructions Recorded Confirmed Omeprazole [PriLOSEC] 20 mg PO QAM 04/05/15 08/12/19 HYDROcodone/APAP 5-325MG [[place] 1 tab PO BID PRN 04/11/19 08/12/19 5-325] Ibuprofen [Advil] 600 mg PO Q6H PRN 08/12/19 08/12/19 Losartan Potassium [Cozaar] 100 mg PO DAILY 08/12/19 08/12/19 Allergies Allergy/AdvReac Type Severity Reaction Status Date / Time No Known Allergies Allergy Verified 08/12/19 10:56 Review of Systems ROS Statement: Those systems with pertinent positive or pertinent negative responses have been documented in the HPI. ROS Other: All systems not noted in ROS Statement are negative. Past Medical History Past Medical History: GERD/Reflux, Hypertension Additional Past Medical History / Comment(s): elevated liver enzymes slightly, History of Any Multi-Drug Resistant Organisms: None Reported Past Surgical History: Back Surgery, Cholecystectomy, Orthopedic Surgery Additional Past Surgical History / Comment(s): R knee hematoma surgically removed from football injury, EGD/colonoscopy., PAIN CLINIC PROCEDURES Past Anesthesia/Blood Transfusion Reactions: No Reported Reaction Additional Past Anesthesia/Blood Transfusion Reaction / Comment(s): no hx blood transfusions Past Psychological History: No Psychological Hx Reported Smoking Status: Never smoker Past Alcohol Use History: Occasional Past Drug Use History: None Reported - Past Family History Mother Family Medical History: Hypertension Additional Family Medical History / Comment(s): Mother has borderline diabetes. Father Family Medical History: GERD/Reflux General Exam - General Exam Comments Initial Comments: 48-year-old male. Alert and oriented 3. Patient appears in moderate discomfort. Limitations: no limitations Head exam: Present: atraumatic, normocephalic, normal inspection Eye exam: Present: normal appearance, PERRL, EOMI. Absent: scleral icterus, conjunctival injection, periorbital swelling ENT exam: Present: normal exam, mucous membranes moist Neck exam: Present: normal inspection. Absent: tenderness, meningismus, lymphadenopathy Respiratory exam: Present: normal lung sounds bilaterally. Absent: respiratory distress, wheezes, rales, rhonchi, stridor Cardiovascular Exam: Present: regular rate, normal rhythm, normal heart sounds. Absent: systolic murmur, diastolic murmur, rubs, gallop, clicks GI/Abdominal exam: Present: soft, normal bowel sounds. Absent: distended, tenderness, guarding, rebound, rigid Extremities exam: Present: normal inspection, full ROM, normal capillary refill. Absent: tenderness, pedal edema, joint swelling, calf tenderness Back exam: Present: paraspinal tenderness (right lumbar). Absent: normal inspection (Patient is a well-appearing incision site over the lumbar spine. Does have some minor lumbar spinal tenderness. Right-sided paraspinal muscle spasm noted.) Neurological exam: Present: alert, oriented X3, CN II-XII intact Psychiatric exam: Present: normal affect, normal mood Skin exam: Present: warm, dry, intact, normal color. Absent: rash Course Vital Signs 08/12/19 08/12/19 08/12/19 10:34 13:40 14:53 Temperature 97.0 F L Pulse Rate 85 91 94 Respiratory 20 18 18 Rate Blood Pressure 208/113 189/116 164/98 O2 Sat by Pulse 97 96 95 Oximetry Medical Decision Making - Medical Decision Making Patient is 48-year-old male presents today for worsening lower back pain after doing some lifting and twisting and bending over the weekend helping his daughter build a homecoming float. Patient reports emergency department quite hypertensive but today. Pretty significant pain. Is given IV fluids labwork obtained. He's had a history of laminectomy and surgery performed Dr. Hayes in the past. He does report some radiation down the right and left hip. At this time patient's x-ray shows degenerative disc disease. There is also some evidence of dilated bowel loops concerned for possible ileus. He reports he still is passing gas but does have fullness in his abdomen. He reports he is unable to sit on the toilet to have a bowel movement 2 to worsening pain in his back. She was given pain medicine blood pressure did come down after this and he is resting more comfortably bed after second dose of narcotics. CT shows evidence of some L4-L5 disc protrusion likely the patient's symptoms. Patient continues to have worsening pain unable to sit up or ambulate without severe pain. I discussed possible admission with consult to Dr. Hayes. She is a greeable to this plan. Discussed with case with dr. Zelaya. - Lab Data Result diagrams: 08/12/19 11:35 08/12/19 11:35 Lab Results 08/12/19 08/12/19 08/12/19 Range/Units 11:35 11:35 13:08 WBC 12.7 H (3.8-10.6) k/uL RBC 6.01 H (4.30-5.90) m/uL Hgb 18.6 H (13.0-17.5) gm/dL Hct 50.2 (39.0-53.0) % MCV 83.5 (80.0-100.0) fL MCH 31.0 (25.0-35.0) pg MCHC 37.1 H (31.0-37.0) g/dL RDW 11.9 (11.5-15.5) % Plt Count 224 (150-450) k/uL Neutrophils % 89 % Lymphocytes % 7 % Monocytes % 3 % Eosinophils % 0 % Basophils % 1 % Neutrophils # 11.2 H (1.3-7.7) k/uL Lymphocytes # 0.9 L (1.0-4.8) k/uL Monocytes # 0.4 (0-1.0) k/uL Eosinophils # 0.0 (0-0.7) k/uL Basophils # 0.1 (0-0.2) k/uL Sodium 135 L (137-145) mmol/L Potassium 4.3 (3.5-5.1) mmol/L Chloride 98 (98-107) mmol/L Carbon Dioxide 23 (22-30) mmol/L Anion Gap 14 mmol/L BUN 14 (9-20) mg/dL Creatinine 0.81 (0.66-1.25) mg/dL Est GFR (CKD-EPI)AfAm >90 (>60 ml/min/1.73 sqM) Est GFR (CKD-EPI)NonAf >90 (>60 ml/min/1.73 sqM) Glucose 126 H (74-99) mg/dL Calcium 9.9 (8.4-10.2) mg/dL Total Bilirubin 1.6 H (0.2-1.3) mg/dL AST 37 (17-59) U/L ALT 65 (21-72) U/L Alkaline Phosphatase 73 (38-126) U/L Total Protein 8.0 (6.3-8.2) g/dL Albumin 4.9 (3.5-5.0) g/dL Urine Color Light Yellow Urine Appearance Clear (Clear) Urine pH 7.0 (5.0-8.0) Ur Specific [place] 1.010 (1.001-1.035) Urine Protein Negative (Negative) Urine Glucose (UA) Negative (Negative) Urine Ketones Negative (Negative) Urine Blood Negative (Negative) Urine Nitrite Negative (Negative) Urine Bilirubin Negative (Negative) Urine Urobilinogen <2.0 (<2.0) mg/dL Ur Leukocyte Esterase Negative (Negative) - Radiology Data Radiology results: report reviewed Multiple loops of mildly dilated small bowel may relate to postoperative ileus correlate with last bowel movement flatulence. No acute fracture dislocation seen lumbar spine. Mild mild multilevel degenerative disc disease noted.Suspect left paracentral disc extrusion with inferior migration of disc lateral L4-L5 this may contribute to moderate spinal canal stenosis and possibly impinging the transversing left L5 nerve root relating for radicular symptoms. Patient has hepatomegaly measuring [address] Jovita ford. Correlate with LFTs are lipid profile. Mild splinter megaly. Prominent air filled small bowel loops through out the abdomen measuring 2.7 cm may be transient or could represent general ileus. Disposition Clinical Impression: Neural foraminal stenosis of lumbosacral spine, Back pain, Intractable pain Disposition: ADMITTED IP TO THIS HOSP Condition: Stable Is patient prescribed a controlled substance at d/c from ED?: No Referrals: Venancio Lebron DO [Primary Care Provider] - 1-2 days Time of Disposition: 15:17
[2019-08-12 11:53] LABS: Basophils # (A) 0.1 k/uL (0-0.2); Basophils % (A) 1 %; Eosinophils % (A) 0 %; HCT 50.2 % (39.0-53.0); HGB 18.6 gm/dL (13.0-17.5); Lymphocytes # (A) 0.9 k/uL (1.0-4.8); Lymphocytes % (A) 7 %; MCHC 37.1 g/dL (31.0-37.0); MCV 83.5 fL (80.0-100.0); Mean Platelet Volume 7.1; Monocytes # (A) 0.4 k/uL (0-1.0); Monocytes % (A) 3 %; Neutrophils # (A) 11.2 k/uL (1.3-7.7); Neutrophils % (A) 89 %; Platelet Count 224 k/uL (150-450); RBC 6.01 m/uL (4.30-5.90); RDW 11.9 % (11.5-15.5); WBC 12.7 k/uL (3.8-10.6)
[2019-08-12 11:57] LABS: ALT 65 U/L (21-72); AST 37 U/L (17-59); African American GFR (CKD) >90 (>60 ml/min/1.73 sqM); Albumin 4.9 g/dL (3.5-5.0); Alkaline Phosphatase 73 U/L (38-126); Anion Gap 14 mmol/L; Blood Urea Nitrogen 14 mg/dL (9-20); Calcium 9.9 mg/dL (8.4-10.2); Carbon Dioxide 23 mmol/L (22-30); Chloride 98 mmol/L (98-107); Glucose 126 mg/dL (74-99); Potassium 4.3 mmol/L (3.5-5.1); Sodium 135 mmol/L (137-145); Total Bilirubin 1.6 mg/dL (0.2-1.3)
--- NOTE | 2019-08-12 12:55 | XR ---
EXAMINATION TYPE: XR lumbar spine 2 or 3V DATE OF EXAM: 08/12/2019 CLINICAL HISTORY: Back pain postsurgery TECHNIQUE: Frontal and lateral images of the lumbar spine are obtained. COMPARISON: None FINDINGS: There are 5 lumbar type vertebral bodies identified. The lumbar spine shows satisfactory alignment without evidence of acute fracture or dislocation. Vertebral body heights and disk space he ights are within normal limits. Intervertebral disc space narrowing is seen at L5-S1 with multilevel facet arthropathy and small anterior osteophytes. Small superior endplate Schmorl's nodes are seen of L1 and L2. Mildly dilated loops of small bowel stacked upon one another measuring up to 3.5 cm. The overlying soft tissue appears unremarkable. IMPRESSION: 1. Multiple loops of mildly dilated small bowel may relate to postoperative ileus. Correlate with las t bowel movement and flatulence. 2. No acute fracture or dislocation is seen in the lumbar spine. Mild multilevel degenerative disc di sease.
[2019-08-12 13:15] LABS: Appearance,Urine Clear (Clear); Bilirubin,Urine Negative (Negative); Blood,Urine Negative (Negative); Color,Urine Light Yellow; Glucose,Urine (UA) Negative (Negative); Ketones,Urine Negative (Negative); Leukocyte Esterase,Urine Negative (Negative); Nitrite,Urine Negative (Negative); Protein,Urine Negative (Negative); Urobilinogen,Urine <2.0 mg/dL (<2.0)
[2019-08-12] MEDS ORDERED: HYDROmorphone 1 MG/ML 1 ML SYRINGE IVP STA (13:35)
[2019-08-12 13:41] VITALS: RESP 18
--- NOTE | 2019-08-12 14:35 | CT ---
EXAMINATION TYPE: CT abdomen pelvis w con DATE OF EXAM: 08/12/2019 COMPARISON: NONE HISTORY: 48-year-old male Ileus, Back Pain TECHNIQUE: Contiguous axial scanning of the abdomen and pelvis following administration of 100 ml Iso stevenson 300 IV contrast. Delayed images through the kidneys and coronal/sagittal reconstructions perform ed. CT DLP: 1620.1 mGycm Automated exposure control for dose reduction was used. FINDINGS: Heart normal size without pericardial effusion. Dependent atelectasis in the lower lungs without pleu ral effusion. Liver enlarged at 20.0 cm. No focal liver lesion. Though there is diffuse low attenuation. Portal tiffany ous system is patent. No biliary ductal dilatation. Gallbladder not seen, likely surgically absent. Adrenal glands, kidneys, and pancreas appear within normal limits. Small anterior splenule and mild s plenomegaly at 14.2 cm measured on coronal series. Multiple prominent air-filled small bowel loops anteriorly in the abdomen measuring up to 2.7 cm. No transition point. Scattered colonic air without a significant stool burden. No pericolonic inflammato ry change. No mesenteric or retroperitoneal lymphadenopathy. Bladder is urine distended. Pelvic phlebolith. No abnormal fluid collection in the pelvis or pelvic l ymphadenopathy. Bones: Moderate to advanced degenerative disc disease L5-S1 and moderate degenerative disc disease at both L3-L4 and L4-L5. There may be a left paracentral disc extrusion with inferior migration of disc material at L4-L5 contributing to at least moderate spinal canal stenosis and possibly effacing the traversing left L5 nerve root. IMPRESSION: 1. SUSPECT A LEFT PARACENTRAL DISC EXTRUSION WITH INFERIOR MIGRATION OF DISC MATERIAL AT L4-L5. THIS MAY CONTRIBUTE TO A MODERATE SPINAL CANAL STENOSIS AND POSSIBLY IMPINGES THE TRAVERSING LEFT L5 NERVE ROOT. CORRELATE FOR ANY RADICULAR SYMPTOMS. 2. HEPATOMEGALY (20.0 CM) WITH HEPATIC STEATOSIS. CORRELATE WITH LFT'S, LIPID PROFILE, AND PATIENT RI SK FACTORS. 3. MILD SPLENOMEGALY (14.2 CM). 4. PROMINENT AIR-FILLED SMALL BOWEL LOOPS THROUGHOUT MEASURING UP TO 2.7 CM MAY BE TRANSIENT OR COULD REPRESENT A GENERALIZED ILEUS.
[2019-08-12] MEDS ORDERED: DIAZEPAM 5 MG/ML 2 ML INJ IVP STA (14:56)
[2019-08-12] MEDS ORDERED: IBUPROFEN 400 MG TAB PO PRN (15:17)
[2019-08-12] MEDS ORDERED: MORPHINE SULFATE 4 MG/ML SYRINGE IV PRN (15:17)
[2019-08-12] MEDS ORDERED: ONDANSETRON 4 MG/2 ML VIAL IVP PRN (15:17)
[2019-08-12] MEDS ORDERED: ACETAMINOPHEN TAB 325 MG TAB PO PRN (15:17)
[2019-08-12] MEDS ORDERED: NALOXONE 0.4 MG/ML 1 ML VIAL IV PRN (15:17)
[2019-08-12] MEDS: HYDROmorphone 1 MG/ML 1 ML SYRINGE IVP PRN ×2 (16:55→21:25)
--- NOTE | 2019-08-12 18:27 | P.CNOR ---
History of Present Illness - HPI Consult date: 08/12/19 Consult reason: low back pain History of present illness: Patient is a very pleasant 48-year-old male who was admitted observation regard to severe intractable incapacitating low back pain and left leg pain. The patient had history of issues in his back and underwent laminectomy decompression L4 5 and L5-S1 back in April about 5 months ago. He had done very well from his surgery he had significant improvement in his low back and left lower extremity symptoms and was making good progress over the summer. He continued to do increasing activity without any significant problems. He was increasing his mobility and decreasing his use of any medications. 2 days ago on Monday he was doing some increased activity doing help with the float building and that evening started having some pain in his lower back. The next day on Monday which was yesterday he had some increasing pain in his lower back and this became incapacitating for him in his back and toward his left thigh. He is not having any fevers chills denies any recent illness. He was having pain extending down the lateral aspect of his thigh and toward his knee. This was getting so severe for him he was unable to move around. He had to cr awl up his stairs and then he was dragged on a rug to try to get out to his car today because he was unable to ambulate at all. He denies loss of control of his bowel or bladder. Denies any headaches. Denies any neural tension signs. Review of Systems As stated per HPI. Denies any recent illness or fevers. Denies any changes in bowel bladder function. Past Medical History Past Medical History: GERD/Reflux, Hypertension, Musculoskeletal Disorder Additional Past Medical History / Comment(s): elevated liver enzymes slightly, History of Any Multi-Drug Resistant Organisms: None Reported Past Surgical History: Back Surgery, Cholecystectomy, Orthopedic Surgery Additional Past Surgical History / Comment(s): He had laminectomy decompression and discectomy L4 5 L5-S1 back in April of this year with our service from which she did very well. R knee hematoma surgically removed from football injury, EGD/colonoscopy., PAIN CLINIC PROCEDURES Past Anesthesia/Blood Transfusion Reactions: No Reported Reaction Additional Past Anesthesia/Blood Transfusion Reaction / Comm: no hx blood transfusions Past Psychological History: No Psychological Hx Reported Additional Psychological History / Comment(s): Pt resides with his spouse. They have one daughter at home. He is independent. Smoking Status: Never smoker Past Alcohol Use History: Occasional Past Drug Use History: None Reported - Past Family History Mother Family Medical History: Hypertension Additional Family Medical History / Comment(s): Mother has borderline diabetes. Father Family Medical History: GERD/Reflux Medications and Allergies Home Medications Medication Instructions Recorded Confirmed Type Omeprazole [PriLOSEC] 20 mg PO QAM 04/05/15 08/12/19 History HYDROcodone/APAP 5-325MG [[place] 1 tab PO BID PRN 04/11/19 08/12/19 History 5-325] Ibuprofen [Advil] 600 mg PO Q6H PRN 08/12/19 08/12/19 History Losartan Potassium [Cozaar] 100 mg PO DAILY 08/12/19 08/12/19 History Allergies Allergy/AdvReac Type Severity Reaction Status Date / Time No Known Allergies Allergy Verified 08/12/19 10:56 Physical Examination Osteopathic Statement: *. No significant issues noted on an osteopathic structural exam other than those noted in the History and Physical/Consult. - L Spine: dermatomal strength & reflexes left Strength: ankle dorsiflexion: 4/5 (His low back incision is well healed there is no erythema no swelling. His left lower extremity he is able lift his leg up off the bed but has weakness with dorsiflexion and EHL on the left. About 3+ to 4 minus out of 5. Otherwise his exam is essentially unremarkable other than his severe myofascial spasm in his lower back. He moves very slowly trying to get up out of bed and has been able to ambulate in the room here in Hospital.) Results - Labs Labs: Abnormal Lab Results - Last 24 Hours (Table) 08/12/19 08/12/19 Range/Units 11:35 11:35 WBC 12.7 H (3.8-10.6) k/uL RBC 6.01 H (4.30-5.90) m/uL Hgb 18.6 H (13.0-17.5) gm/dL MCHC 37.1 H (31.0-37.0) g/dL Neutrophils # 11.2 H (1.3-7.7) k/uL Lymphocytes # 0.9 L (1.0-4.8) k/uL Sodium 135 L (137-145) mmol/L Glucose 126 H (74-99) mg/dL Total Bilirubin 1.6 H (0.2-1.3) mg/dL H & H 08/12/19 Range/Units 11:35 Hgb 18.6 H (13.0-17.5) gm/dL Hct 50.2 (39.0-53.0) % Result Diagrams: 08/12/19 11:35 08/12/19 11:35 - Diagnostic results CT Scan - lumbar: report reviewed, image reviewed (Computed tomography scan of his lumbar spine and x-rays of his lumbar spine reviewed his significant disc height loss L3 4. There is evidence of the disc fusion and laminectomy at L45 with possible recurrent disc herniation L4 5 to the left) Assessment and Plan Assessment: Incapacitating low back pain with left lower extremity radiculopathy History of laminectomy decompression and discectomy in April 2019 Likely recurrent disc herniation L4 5 with left extremity radiculopathy Left lower extremity weakness Plan: Incapacitating low back pain with left lower extremity radiculopathy History of laminectomy decompression and discectomy in April 2019 Likely recurrent disc herniation L4 5 with left extremity radiculopathy Left lower extremity weakness Patient seems to have a recurrent disc herniation and flare up that his low back and left lower extremity over a L4 and L5 distribution. He has some weakness his left lower extremity and has had incapacitating pain with inability to ambulate today. He has had some relief with the IV Dilaudid and IV steroid where he has been able to increase his mobility somewhat here in Hospital. Hopefully he will continue to increase his mobility so that he can maintain control of his symptoms as an outpatient after discharge. He seems to have recurrent herniation and an MRI of his lumbar spine would certainly give further detail to the extent of the possible recurrent herniation L4 5. We have ordered new MRI. He could also be a candidate for interventional pain management and the possibility of repeat surgery if his symptoms do not improve further. I discussed this with him answers questions and he understands. We'll see how he does overnight with continued conservative care and follow-up with his further imaging
[2019-08-12] MEDS: KETOROLAC 30 MG/ML 1 ML VIAL IVP PRN (18:38)
[2019-08-12] MEDS: SODIUM CHLORIDE 0.9% 1,000 ML IV SCH (19:29)
[2019-08-13] MEDS: HYDROmorphone 1 MG/ML 1 ML SYRINGE IVP PRN ×3 (02:20→10:52)
[2019-08-13] MEDS: SODIUM CHLORIDE 0.9% 1,000 ML IV SCH (02:51)
[2019-08-13] MEDS: KETOROLAC 30 MG/ML 1 ML VIAL IVP PRN (07:47)
[2019-08-13 07:48] VITALS: BP 152/88; PULSE 83; TEMP 97.3
[2019-08-13] MEDS ORDERED: PANTOPRAZOLE 40 MG/10 ML VIAL IV SCH (09:00)
[2019-08-13] MEDS ORDERED: LORazepam 2 MG/ML INJ IV STA (09:38)
[2019-08-13] MEDS ORDERED: LOSARTAN 50 MG TAB PO SCH (09:45)
--- NOTE | 2019-08-13 11:06 | MR ---
EXAMINATION TYPE: MR lumbar spine wo con DATE OF EXAM: 08/13/2019 COMPARISON: NONE HISTORY: Severe LBP, LLE radic, hx laminectomy TECHNIQUE: T1 and T2 axial and sagittal images of the lumbar spine are submitted. FINDINGS: There is no abnormal signal seen within the visualized spinal cord or paraspinal soft tissu es. At L1-2 there is no disc herniation or canal stenosis. No foraminal encroachment. At L2-3 there is broad-based right paracentral disc bulge or small protrusion with mild effacement of thecal sac. No Canal stenosis. Neural foramina remain patent. Hypertrophic change of the facets. At L3-4 there is moderate degenerative disc disease with broad-based central disc protrusion resultin g in moderate effacement of thecal sac and mild central canal stenosis. Facet arthropathy and ligamen anais flavum hypertrophy contribute there is mild bilateral foraminal encroachment. At L4-5 there is there is a large extruded disc herniation extending paracentrally to the left with c ompromise of the left lateral recess. There is moderate right foraminal encroachment mild left forami nal encroachment. At L5-S1 there is suggestion of possible previous left hemilaminectomy. There is a central disc protr usion. Hypertrophic change of the facets are noted and there is a mild right foraminal encroachment a nd moderate left foraminal encroachment. Mild effacement of thecal sac. No contrast was administered. There is ill-definition adjacent to the left nerve root at the L5-S1 level. Suspect that there is a granulation or scar tissue which may involve the left nerve root. IMPRESSION: 1. Large extruded disc herniation centrally and paracentrally to left with compromise of the left lat eral recess and foraminal encroachment as discussed above at L4-L5. 2. Postsurgical change L5-S1. Contrast was not administered which limits assessment. There does appea r to be increased signal adjacent to the left nerve root and left lateral margin of the thecal sac on T1 axial image 3 which most likely related to scar or granulation tissue. Postcontrast imaging recom mended to assess for nerve root involvement. 3. Disc bulging or small protrusions at L2-3 and L3-L4 with mild canal stenosis L3-L4.
--- NOTE | 2019-08-13 12:28 | P.PN ---
Progress Note - Text Progress Note Date: 08/13/19 Patient is a very pleasant 48-year-old male who is seen and examined at bedside for follow-up evaluation regards to his intractable low back pain with left lower extremity radiculopathy. Since his admittance yesterday, he has had some improvement of his symptoms with a dose of Solu-Medrol, Dilaudid, morphine, Tylenol, and Motrin. He continues to have pain that radiates in the lumbar spine, over the left posterior lateral thigh and over the left cooper. He does have chronic weakness with his left great toe. He does feel his symptoms are better controlled than during his admission to the hospital. He does feel he would be stable for discharge home today. He had was able to have an MRI of the lumbar spine performed this morning. Physical exam: Patient is awake, alert, and oriented 3 Vital signs stable Good chest excursion with deep inspiration and expiration Abdomen soft nontender Examination of lumbar spine reveals skin is intact with no abrasions, lacerations, or bruises; no erythema, purulence or signs of infection Evidence of a well-healed incision along the midline of the lower lumbar spine No significant pain with palpation over the lumbar spine Dorsiflexion, plantarflexion, and extensor hallucis longus positive sustained bilaterally Extensor hallucis longus strength 3/5 on the left Straight leg test positive for the left lower extremity No signs or symptoms of DVT; no calf pain No pain with internal and external rotation of the hips bilaterally Neurovascularly intact Pertinent studies: MRI of the lumbar spine without contrast taken on 08/13/2019: L4-5 large central and left paracentral herniated nucleus pulposus resulting in left neural foraminal stenosis and central canal stenosis with compromise of the left lateral recess and evidence of left L4 hemilaminectomy; L5-S1 apparent left L5 hemilaminectomy, central disc protrusion and facet hypertrophy with bilateral foraminal encroachment with some ill definition of the adjacent left nerve root to suspect granulation or scar tissue; L3-4 degenerative disc disease, facet hypertrophy, and broad-based disc protrusion with mild central canal stenosis Assessment: L4-5 recurrent herniated nucleus pulposus with central canal and left neural foraminal stenosis Intractable low back pain and sign left lower extremity radiculopathy History of L4-5 and L5-S1 laminectomy and decompression with discectomy performed on 05/07/2019 Lumbar facet hypertrophy and degenerative disc disease Plan: 1. Patient does feel he has had some improvement of his symptoms since admittance to the hospital with medications. Lumbar MRI has been performed and these results have been discussed in detail with the patient. He does feel he is stable to be discharged home today. We discussed we will plan to clear him for discharge home today with plans to have him follow up this coming 08/16/2019. We will plan to prescribe a 10 mg prednisone taper as well as refill his previously prescribed hydrocodone prescription. He may take his medications as prescribed as needed for relief of the symptoms. We discussed he should avoid excessive activities including repetitive bending, twisting, and lifting. Depending on his progress, we will discuss further treatment options at his follow-up plan. 2. Patient will continue be seeing exam by medicine.
[2019-08-13] MEDS ORDERED: predniSONE 20 MG TAB PO STA (13:47)
[2019-08-13] MEDS ORDERED: NAPROXEN 250 MG TAB PO STA (13:47)
[2019-08-13] MEDS ORDERED: ENOXAPARIN 40 MG/0.4 ML SYRINGE SQ SCH (14:00)
--- NOTE | 2019-08-13 23:06 | P.HPIM ---
History of Present Illness H&P Date: 08/13/19 Chief Complaint: Back pain History of presenting complaint: This is a very pleasant 48-year-old patient of Dr. Lebron. Back in February of this year patient developed acute L5-S1 radiculopathy and arthropathy. He was treated that time with steroids. Medication and sent home. Subsequently underwent laminectomy by Dr. Osuna of L4-L5 and L5-S1 in April of this year that is 2019. He did well from his surgery in greatly improved. 2 days ago he was doing chores around the house like to work but he started developing pain in the lower back. By the following day pain had become rather severe and going down to the left hip and even progressed down to the left knee. It was very sharp excruciating and patient became very distressed. Could not even get out of her car. Has patient was sent into the ER. There is no local trauma. No fever no chills. No involvement of the bowel or bladder. Review of systems: GEN.: None EYES: None HEENT: None NECK: None RESPIRATORY: None CARDIOVASCULAR: None GASTROINTESTINAL: None GENITOURINARY: None MUSCULOSKELETAL: As above LYMPHATICS: None HEMATOLOGICAL: None PSYCHIATRY: None NEUROLOGICAL: None Past medical history to include: GERD, hypertension, L4-L5 L5-S1 radiculopathy with laminectomy Social history: No smoking. Alcohol occasionally. . Physical examination: VITAL SIGNS: 97.3, 83, 18, 152/88, 96% room air GENERAL: BMI 33 sitting up, not in distress. EYES: Pupils equal. Conjunctiva normal. HEENT: External appearance of nose and ears normal, oral cavity grossly normal. NECK: JVD not raised; masses not palpable. HEART: First and second heart sounds are normal; no edema. LUNGS: Respiratory rate normal; clear to auscultation. ABDOMEN: Soft, nontender, liver spleen not palpable, no masses palpable. PSYCH: Alert and oriented x3; mood and affect normal. NEUROLOGICAL: Cranial nerves grossly intact; no facial asymmetry, power and sensation grossly intact. LYMPHATICS: No lymph nodes palpable in the axilla and neck MUSCULOSKELETAL: Some limitation to movement on the left hip INVESTIGATIONS, reviewed in the clinical context: White count 12.7 potassium 4.3 BUN 14 creatinine 0.81 Computed tomography scan-left paracentral disc extrusion at L4-L5 possible spinal canal stenosis possibly impinging on L5 nerve root, hepatomegaly Assessment: -Acute L4-L5 herniated disc with radiculopathy severe -GERD -Essential hypertension -Obesity BMI 33 Plan: Dr. [facility] was consulted. Patient is put on steroids. Bed rest initially. And answers were given. MRI of the spine was ordered. Patient started feeling better. Care was discussed Past Medical History Past Medical History: GERD/Reflux, Hypertension, Musculoskeletal Disorder Additional Past Medical History / Comment(s): elevated liver enzymes slightly, History of Any Multi-Drug Resistant Organisms: None Reported Past Surgical History: Back Surgery, Cholecystectomy, Orthopedic Surgery Additional Past Surgical History / Comment(s): He had laminectomy decompression and discectomy L4 5 L5-S1 back in April of this year with our service from which she did very well. R knee hematoma surgically removed from football injury, EGD/colonoscopy., PAIN CLINIC PROCEDURES Past Anesthesia/Blood Transfusion Reactions: No Reported Reaction Additional Past Anesthesia/Blood Transfusion Reaction / Comment(s): no hx blood transfusions Past Psychological History: No Psychological Hx Reported Additional Psychological History / Comment(s): Pt resides with his spouse. They have one daughter at home. He is independent. Smoking Status: Never smoker Past Alcohol Use History: Occasional Past Drug Use History: None Reported - Past Family History Mother Family Medical History: Hypertension Additional Family Medical History / Comment(s): Mother has borderline diabetes. Father Family Medical History: GERD/Reflux Medications and Allergies Home Medications Medication Instructions Recorded Confirmed Type Omeprazole [PriLOSEC] 20 mg PO QAM 04/05/15 08/12/19 History HYDROcodone/APAP 5-325MG [[place] 1 tab PO BID PRN 04/11/19 08/12/19 History 5-325] Losartan Potassium [Cozaar] 100 mg PO DAILY 08/12/19 08/12/19 History Naproxen [Naprosyn] 250 mg PO TID #21 tab 08/13/19 Rx predniSONE 10 mg PO DAILY #30 tab 08/13/19 Rx Allergies Allergy/AdvReac Type Severity Reaction Status Date / Time No Known Allergies Allergy Verified 08/12/19 10:56 Physical Exam Vitals: Vital Signs Temp Pulse Pulse Resp BP BP Pulse Ox 08/13/19 08:00 83 18 08/13/19 07:15 97.3 F L 83 18 152/88 96 08/13/19 04:00 18 08/12/19 23:50 18 08/12/19 23:39 97.8 F 102 H 18 139/69 93 L 08/12/19 20:00 18 08/12/19 18:31 102 H 18 08/12/19 17:35 97.0 F L 94 18 173/104 95 08/12/19 16:30 173/104 08/12/19 16:00 98.0 F 102 H 16 166/94 180/114 93 L 08/12/19 15:30 162/104 08/12/19 15:00 164/98 08/12/19 14:53 94 18 164/98 95 08/12/19 14:00 189/116 08/12/19 13:40 91 18 189/116 96 08/12/19 13:30 208/113 08/12/19 13:00 208/113 08/12/19 12:30 208/113 08/12/19 12:00 208/113 08/12/19 11:30 208/113 08/12/19 11:00 208/113 Intake and Output 08/12/19 08/13/19 08/13/19 22:59 06:59 14:59 Intake Total 1400 840 Balance 1400 840 Intake: Amount of Fluid Infused ( 1400 ml) Oral 240 Other 600 Other: Voiding Method Toilet Toilet Toilet # Voids 1 Results CBC & Chem 7: 08/12/19 11:35 08/12/19 11:35 Labs: Abnormal Lab Results - Last 24 Hours (Table) 08/12/19 08/12/19 Range/Units 11:35 11:35 WBC 12.7 H (3.8-10.6) k/uL RBC 6.01 H (4.30-5.90) m/uL Hgb 18.6 H (13.0-17.5) gm/dL MCHC 37.1 H (31.0-37.0) g/dL Neutrophils # 11.2 H (1.3-7.7) k/uL Lymphocytes # 0.9 L (1.0-4.8) k/uL Sodium 135 L (137-145) mmol/L Glucose 126 H (74-99) mg/dL Total Bilirubin 1.6 H (0.2-1.3) mg/dL Thrombosis Risk Factor Assmnt - Choose All That Apply Any of the Below Risk Factors Present?: Yes Each Factor Represents 1 point: Age 41-60 years Other Risk Factors: No Thrombosis Risk Factor Assessment Total Risk Factor Score: 1 Thrombosis Risk Factor Assessment Level: Low Risk
--- NOTE | 2019-08-13 23:10 | P.DS ---
Providers Date of admission: 08/12/19 15:50 Expected date of discharge: 08/13/19 Attending physician: Prasad Paredes Consults: 08/12/19 15:17 Consult Physician Stat Consulting Provider: Troy Hayes Consult Reason/Comments: Back pain, radiculopathy Do you want consulting provider notified?: Yes Primary care physician: Venancio [facility] Hospital Course: Chief Complaint: Back pain Hospital course: This is a very pleasant 48-year-old patient of Dr. Lebron. Back in February of this year patient developed acute L5-S1 radiculopathy and arthropathy. He was treated that time with steroids. Medication and sent home. Subsequently underwent laminectomy by Dr. Osuna of L4-L5 and L5-S1 in April of this year that is 2019. He did well from his surgery in greatly improved. 2 days ago he was doing chores around the house like to work but he started developing pain in the lower back. By the following day pain had become rather severe and going down to the left hip and even progressed down to the left knee. It was very sharp excruciating and patient became very distressed. Could not even get out of her car. Has patient was sent into the ER. There is no local trauma. No fever no chills. No involvement of the bowel or bladder. Patient had a computed tomography scan of the back. Herniation L5 level with compression of the nerve was found. MRI confirmed the same. Patient given steroids NSAIDs. To which she started this point better. Seen [facility] from [facility]. Patient is cleared by discharge. Discussed with the patient. He'll follow up with him in the office. Consultation: from [facility] Physical examination: VITAL SIGNS: 97.3, 83, 18, 152.88, 96% room air GENERAL: BMI 33 sitting up, not in distress. EYES: Pupils equal. Conjunctiva normal. HEENT: External appearance of nose and ears normal, oral cavity grossly normal. NECK: JVD not raised; masses not palpable. HEART: First and second heart sounds are normal; no edema. LUNGS: Respiratory rate normal; clear to auscultation. ABDOMEN: Soft, nontender, liver spleen not palpable, no masses palpable. PSYCH: Alert and oriented x3; mood and affect normal. NEUROLOGICAL: Cranial nerves grossly intact; no facial asymmetry, power and sensation grossly intact. LYMPHATICS: No lymph nodes palpable in the axilla and neck MUSCULOSKELETAL: Some limitation to movement on the left hip INVESTIGATIONS, reviewed in the clinical context: White count 12.7 potassium 4.3 BUN 14 creatinine 0.81 Computed tomography scan-left paracentral disc extrusion at L4-L5 possible spinal canal stenosis possibly impinging on L5 nerve root, hepatomegaly MRI-lumbar spine-large extruded disc herniation centrally and paracentrally to the left with compromise of the left lateral recess and forearm and encroachment at L4-L5 Discharge diagnosis: -Acute L4-L5 herniated disc with radiculopathy severe -GERD -Essential hypertension -Obesity BMI 33 Disposition: Home Patient Condition at Discharge: Stable Plan - Discharge Summary Discharge Rx Participant: No New Discharge Prescriptions: New Naproxen [Naprosyn] 250 mg PO TID #21 tab predniSONE 10 mg PO DAILY #30 tab Continue Omeprazole [PriLOSEC] 20 mg PO QAM HYDROcodone/APAP 5-325MG [[place] 5-325] 1 tab PO BID PRN PRN Reason: Pain Losartan Potassium [Cozaar] 100 mg PO DAILY Discontinued Ibuprofen [Advil] 600 mg PO Q6H PRN PRN Reason: Pain Discharge Medication List Omeprazole [PriLOSEC] 20 mg PO QAM 04/05/15 [History] HYDROcodone/APAP 5-325MG [[place] 5-325] 1 tab PO BID PRN 04/11/19 [History] Losartan Potassium [Cozaar] 100 mg PO DAILY 08/12/19 [History] Naproxen [Naprosyn] 250 mg PO TID #21 tab 08/13/19 [Rx] predniSONE 10 mg PO DAILY #30 tab 08/13/19 [Rx] Follow up Appointment(s)/Referral(s): Venancio Lebron DO [Primary Care Provider] - 1-2 days Troy Hayes DO [Doctor of Osteopathic Medicine] - 08/16/19 10:30 am (Follow up on Monday with Jack Mcintyre) Discharge/Stand Alone Forms: Work/School Release / Restrict Discharge Disposition: HOME SELF-CARE
[2019-08-14] MEDS ORDERED: PANTOPRAZOLE 40 MG TABLET PO SCH (07:30)
== END 2019-08-13 15:13 | disposition home or self-care (01) ==
LOC: EC 10:21 → 1SOBS 15:50
PROVIDERS: ADMIT Hospitalist; ATTEND Hospitalist
DX: M51.16 Intervertebral disc disorders with radiculopathy, lumbar region (principal); M47.27 Other spondylosis with radiculopathy, lumbosacral region; M51.17 Intervertebral disc disorders with radiculopathy, lumbosacral region; M25.78 Osteophyte, vertebrae; I10 Essential (primary) hypertension; K21.9 Gastro-esophageal reflux disease without esophagitis; K76.0 Fatty (change of) liver, not elsewhere classified; R16.1 Splenomegaly, not elsewhere classified; Z68.33 Body mass index [BMI] 33.0-33.9, adult; E66.9 Obesity, unspecified; R53.1 Weakness; Z79.891 Long term (current) use of opiate analgesic; Z79.899 Other long term (current) drug therapy; Z98.1 Arthrodesis status; Z87.828 Personal history of other (healed) physical injury and trauma; Z90.49 Acquired absence of other specified parts of digestive tract; Z82.49 Family history of ischemic heart disease and other diseases of the circulatory system; Z83.79 Family history of other diseases of the digestive system
CPT/HCPCS: 96372; 96375 ×2; 96376 ×3; 96361; 96374; 99285; 36415; 80053; 85025; 81003; 72100; 74177; 72148; G0378 ×2; J2060; J2270; J2360; J2930; J3360; J1650; J1885 ×2; J1170 ×2; J7512; C9113; Q9967

== ENCOUNTER 2019-09-16 11:31 | Day surgery (SDC) | payer BC ==
[2019-09-11 15:33] VITALS: BMI 33.0
[~2019-09-16 11:31] MED LIST changes: +BACITRACIN 50,000 UNIT, POLYMYXIN B 500,000 UNIT in SODIUM CHLORIDE 0.9% IRRIGATIO 1,00... IRRIGATION ONE; +DEXAMETHASONE SOD PHOSPHATE 10 MG/ML 1 ML VIAL IV ONE; +MIDAZOLAM 2 MG/2 ML VIAL IV PRN; +ONDANSETRON 4 MG/2 ML VIAL IVP ONE; +SCOPOLAMINE 1.5MG/72HR PATCH TRANSDERM ONE
[2019-09-16] MEDS ORDERED: GLYCOPYRROLATE 0.2 MG/ML 2 ML VIAL ONE (12:31)
[2019-09-16] MEDS ORDERED: ROCURONIUM BROMIDE 10 MG/ML 10 ML VIAL IV ONE (12:31)
[2019-09-16] MEDS ORDERED: MIDAZOLAM 2 MG/2 ML VIAL ONE (12:31)
[2019-09-16] MEDS ORDERED: fentaNYL (PF) 50 MCG/ML 2 ML AMP ONE (12:31)
[2019-09-16] MEDS ORDERED: PHENYLEPHRINE-0.9% NACL SYG 1 MG/10 ML SYRINGE ONE (12:31)
[2019-09-16] MEDS ORDERED: SUCCINYLCHOLINE CHLORIDE 100 MG/5 ML SYR IV ONE (12:31)
[2019-09-16] MEDS ORDERED: LIDOCAINE 1% INJ 10MG/ML (20 ML MDV) ONE (12:31)
[2019-09-16] MEDS ORDERED: NEOSTIGMINE 1 MG/ML 10 ML VIAL ONE (12:31)
[2019-09-16] MEDS ORDERED: LIDOCAINE 1%-EPI 1:100,000 20 ML VIAL SQ ONE (13:07)
[2019-09-16] MEDS ORDERED: BUPIVACAINE (PF) 0.25% 30 ML VIAL SQ ONE (13:07)
[2019-09-16] MEDS ORDERED: GELATIN SPONGE,ABSORB (LARGE) 1 EACH SPONGE TOPICAL ONE (13:22)
[2019-09-16] MEDS ORDERED: THROMBIN (BOVINE) 5,000 UNIT VIAL TOPICAL ONE (13:23)
--- NOTE | 2019-09-16 13:34 | XR ---
EXAMINATION TYPE: XR lumbar spine 1V, FL guidance operating room DATE OF EXAM: 09/16/2019 CLINICAL HISTORY: Low back pain TECHNIQUE: Fluoroscopy. COMPARISON: None. FINDINGS: Fluoroscopic guidance was provided during procedure performed by Dr. Hayes. A total of 1 seconds of fluoroscopic time was utilized during the procedure and 1 spot images was acquired localiz ing the L4-L5 vertebral level. IMPRESSION: As Above.
[2019-09-16] MEDS ORDERED: methylPREDNISolone ACETATE 80 MG/ML 1 ML VIAL INTRAARTIC ONE (13:51)
[2019-09-16] MEDS ORDERED: MAGNESIUM HYDROXIDE 2,400 MG/10 ML CUP PO PRN (14:14)
[2019-09-16] MEDS ORDERED: ONDANSETRON 4 MG/2 ML VIAL IVP PRN (14:14)
[2019-09-16] MEDS ORDERED: IBUPROFEN 600 MG TAB PO PRN (14:14)
[2019-09-16] MEDS ORDERED: HYDROmorphone 0.5 MG/0.5 ML SYRINGE IVP PRN (14:14)
[2019-09-16] MEDS ORDERED: HYDROmorphone 1 MG/ML 1 ML SYRINGE IVP PRN (14:14)
[2019-09-16] MEDS ORDERED: BENZOCAINE/MENTHOL LOZENG 1 EACH LOZENGE MUCOUS MEM PRN (14:14)
[2019-09-16] MEDS ORDERED: HYDROcodone/APAP 5-325MG 1 EACH TAB PO PRN ×2 (14:14)
[2019-09-16] MEDS ORDERED: SODIUM CHLORIDE 0.9% 1,000 ML IV SCH (14:15)
--- NOTE | 2019-09-16 14:27 | P.OP ---
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 Hayes [employer] Operator: Toni Correa is present throughout the entire the case persistence during positioning, dissection, exposure, visualization, and all crucial elements of the case as well as closure. Anesthesia: General anesthesia per Dr. Rogel Estimated blood loss: Approximately 50 mL Complications: None apparent Components implanted: None Disposition: To recovery room in good stable condition. OPERATIVE INDICATIONS The patient has been having issues in their lower back and lower extremities. He had a history of disc herniation with left lower extremity radiculopathy and underwent prior surgery approximate 5 months ago where he had decompression and discectomy. He done very well with that procedure and made excellent progress with his back and lower extremities until several weeks ago when he had severe onset of low back and left lower extremity radicular symptoms again. He was incapacitated with this and his and daughter had to drag him on a rug in order to move him about the house. He was seen and evaluated and we attempted aggressive conservative treatment with him. He was having recurrent left lower extremity radicular symptoms with some weakness. He is found have a large recurrent disc herniation at L4 5 with large extruded fragment and small recurrent herniation at L5 S1. The patient has been through conservative art atment without any benefit. We discussed various treatment options including surgery, and the recurrent laminectomy and discectomy L4 5 and L5-S1 and the patient wishes to proceed with surgery We discussed the risk, patient's alternatives and benefits of surgery including but not limited to, risk of bleeding risk of infection, risk of need for further surgery, risk of decreased, loss of motion, loss of function, nerve damage, paralysis, heart attack, blindness and . OPERATIVE SUMMARY After discussing all the risks, patient alternatives and benefits at length, the patient elected to proceed with surgical intervention, signed informed consent, and presented for their procedure. The patient was seen and examined in the preoperative holding area and the surgical site was marked. The patient was given antibiotics and brought to the operating room. The patient was sedated and intubated by anesthesia in standard fashion while he was in the supine position on his stretcher.. The patient was positioned on to the operating room table in a prone position on the appropriate frame which was well-padded and well molded. We were careful to pad any bony prominences and pressure points. We were careful to maintain the patient's cervical spine and good neutral alignment and position throughout. The patient was prepped and draped in a normal standard fashion. An appropriate timeout and keystone protocol performed. We were able to proceed with the surgery. Fluoroscopy was utilized to establish the appropriate level, and the prior surgical site was used with the prior incision at L4 5 and S1.. The local wound area was infiltrated with local anesthetic. An incision was made at the midline longitudinally over the appropriate levels utilizing the prior incision at L4 5 and S1. Dissection was taken down subcutaneously to the level of the fascia which was split midline. Dissection was taken over the lamina. Intraoperative fluoroscopy was taken which showed a marker at the appropriate level at L4 5. With the appropriate level positively confirmed, we were able to proceed with revision laminectomy. I started at L4 5 and then moved L5-S1. The wound was copiously irrigated and suctioned dry as had been done periodically throughout the case. I performed a revision laminectomy with a combination of curettes and a high-speed bur and Kerrison rongeurs. A small medial facetectomy was performed again further access. I had to take down further aspects of the medial facet in order to gain access. A partial foraminotomy was also performed. Portions of the ligamentum flavum were taken down to expose the dura and traversing nerve root. There was some scar tissue formation which had to be taken down. I was able to mobilize the traversing nerve root and gain access to the disc space. At L4 5 Note was made of obvious compression from the disc. There was a large extruded fragment which was causing severe distortion and stenosis with pressure on the traversing nerve root. Protecting the soft tissue structures, a small annulotomy was established. I was able to perform discectomy and remove any extruded disc fragments and any loose fragments from within the disc itself. The large extruded disc fragments were removed as were further disc fragments from the disc space itself. There is significant disc loss within the disc space. There is some disc desiccation noted. I tried to preserve the disc annulus that appeared stable. At L5-S1 there was some small disc herniation and fragmentation which was removed as well. There was significant disc loss at L5- S1 as well. There were no further extruded fragments noted. There is no evidence of dural tear or leak. Good hemostasis maintained. The wound was copiously irrigated and suctioned dry. Good decompression and discectomy was noted. We were able to proceed with closure. The fascia was closed for a watertight closure. The subcuticular tissue was closed with absorbable suture. The wound was cleaned and dried and dressed with the appropriate dressing. The drapes were broken down. The patient was gently rolled back onto their hospital bed being careful to maintain their cervical spine and good neutral alignment and position. They were woken up by anesthesia, extubated, and brought to the recovery room in good stable condition. The patient will be admitted to the hospital for observation and for appropriate postoperative care, medical management and monitoring. We will continue to follow them closely about the postoperative course.
[2019-09-16 14:32] VITALS: TEMP 97.4
[2019-09-16] MEDS: HYDROmorphone 0.5 MG/0.5 ML SYRINGE IVP PRN ×4 (14:38→15:45)
[2019-09-16 14:52] VITALS: RESP 16
[2019-09-16] MEDS ORDERED: HYDROcodone/APAP 5-325MG 1 EACH TAB PO ONE (17:15)
[2019-09-16 18:05] VITALS: BP 143/91; PULSE 94
[2019-09-17] MEDS ORDERED: PANTOPRAZOLE 40 MG TABLET PO SCH (07:30)
[2019-09-17] MEDS ORDERED: LOSARTAN 50 MG TAB PO SCH (09:00)
== END 2019-09-16 18:10 | disposition home or self-care (01) ==
LOC: OR 11:31
PROVIDERS: ATTEND Orthopaedic Surgery Orthopaedic Surgery of the Spine
DX: M51.16 Intervertebral disc disorders with radiculopathy, lumbar region (principal); M51.17 Intervertebral disc disorders with radiculopathy, lumbosacral region; M47.26 Other spondylosis with radiculopathy, lumbar region; M47.27 Other spondylosis with radiculopathy, lumbosacral region; M48.061 Spinal stenosis, lumbar region without neurogenic claudication; I12.9 Hypertensive chronic kidney disease with stage 1 through stage 4 chronic kidney disease, or unspecified chronic kidney disease; N18.9 Chronic kidney disease, unspecified; E78.5 Hyperlipidemia, unspecified; E66.9 Obesity, unspecified; Z68.31 Body mass index [BMI] 31.0-31.9, adult; Z97.3 Presence of spectacles and contact lenses; Z90.49 Acquired absence of other specified parts of digestive tract; Z79.891 Long term (current) use of opiate analgesic; Z79.899 Other long term (current) drug therapy; Z80.0 Family history of malignant neoplasm of digestive organs; Z80.8 Family history of malignant neoplasm of other organs or systems; Z82.49 Family history of ischemic heart disease and other diseases of the circulatory system; Z88.8 Allergy status to other drugs, medicaments and biological substances
CPT/HCPCS: 36415; 72020; 86850; 86900; 86901

== ENCOUNTER → 2024-02-23 | Outpatient (CLI) | payer BC ==
--- NOTE | 2024-02-23 15:41 | US ---
EXAMINATION TYPE: US thyroid st tissue head/neck DATE OF EXAM: 02/23/2024 COMPARISON: NONE CLINICAL INDICATION: Male, 53 years old with history of E04.2 GOITER; Thyroid nodules GLAND SIZE: Right Lobe: 5.4 x 2.5 x 2.3 cm Overall Parenchyma: heterogeneous Left Lobe: 4.5 x 1.7 x 2.1 cm Overall Parenchyma: heterogeneous Isthmus Thickness: .6 cm NODULES RIGHT: # of nodules measured on right: Multiple subcentimeter nodules seen. LEFT: # of nodules measured on left: 1 1. 3.3 X 1.6 x 1.7 cm, mid , solid or almost completely solid, hypoechoic nodule, which is wider th an tall, with ill-defined margins, without echogenic foci. Prior size: No previous. ISTHMUS: # of nodules measured in the isthmus: 0 Bilateral neck scanned, no evidence of lymphadenopathy. IMPRESSION: Moderately Suspicious: FNA if ? 1.5 cm; Follow if ? 1 cm at 1, 2, 3, and 5 y 2017 ACR TI-RADS LEVEL: TR4 *Highest TI-RADS level nodule reported
== END | disposition home or self-care (01) ==
LOC: RADUSWWP 14:55
PROVIDERS: ATTEND Family Medicine
DX: E04.2 Nontoxic multinodular goiter (principal)
CPT/HCPCS: 76536

== ENCOUNTER 2024-03-07 08:46 | Day surgery (SDC) | payer BC ==
[2024-03-07 09:27] VITALS: RESP 16; TEMP 98.1
[2024-03-07 10:59] VITALS: BP 141/84; PULSE 68
--- NOTE | 2024-03-07 16:14 | US ---
EXAMINATION TYPE: US FNA thyroid first lesion DATE OF EXAM: 03/07/2024 11:10 AM REASON FOR EXAM: 53-year-old male E04.1 NONTOXIC SINGLE THYROID NODULE RADIOLOGIST: Dr. Kenneth Crespo PROCEDURE: An initial scanning showed solid TR4 nodule on the left measuring 3.2 cm. This is targeted for FNA. The procedure, along with the risks and complications were discussed with the patient. Patient agreed to proceed with the procedure. A consent was signed and placed in patient's chart. Maximum sterile barrier technique was utilized. Timeout was performed. The left side of the neck was sterilely prepped and draped in the usual fashion. 3 milliliters of 1% Lidocaine were utilized to ane sthetize the superficial and deep soft tissues. Following that, under ultrasound guidance, 5 passes were made into each nodule with 5 cc syringe suct ion. After each pass, the sample was placed on a slide and then sent for pathology. Upon conclusion, hemostasis was achieved, and patient was discharged home in satisfactory condition. IMPRESSION: Successful FNA of the 3.2 cm TR4 nodule in the left lobe. Pathology pending.
== END 2024-03-07 10:10 | disposition home or self-care (01) ==
LOC: RADPROMAIN 08:46
PROVIDERS: ATTEND Family Medicine
DX: E04.1 Nontoxic single thyroid nodule (principal)
CPT/HCPCS: 10005; 88173; 88305